=== PATIENT | male | born 1950 | race Caucasian/White ===

== ENCOUNTER 2016-05-18 08:26 | Inpatient (IN) | payer OTHER, BC ==
[2016-04-09 08:17] VITALS: BMI 33.0
--- NOTE | 2016-04-09 08:54 | PAT Medication Instructions ---
Service Date Apr 09, 2016. Current Home Medication List Acetaminophen (Tylenol Extra Strength), 1,000 MG PO QID Amlodipine (Norvasc), 10 MG PO QAM Aspirin (Aspirin), 81 MG PO QPM Atenolol (Tenormin), 100 MG PO QAM Atorvastatin (Atorvastatin Calcium), 10 MG PO QPM Famotidine (Pepcid), 20 MG PO DAILY PRN for STOMACH Gabapentin (Neurontin), 300 MG PO TID Ibuprofen (Advil), 200-600 MG PO Q4H PRN for Pain Metformin Hcl (Glucophage), 500 MG PO BID Valsartan (Diovan), 160 MG PO QAM Medication Instructions For Your Scheduled Surgery Ibuprofen (Advil), 200-600 MG PO Q4H PRN for Pain (patient will check with surgeon for instructions) - Hold the following medications 48 hours prior to surgery: Metformin Hcl (Glucophage), 500 MG PO BID - Hold the following medications the morning of surgery: Valsartan (Diovan), 160 MG PO QAM - Take the following medications the morning of surgery with a sip of water: Gabapentin (Neurontin), 300 MG PO TID (if needed) Famotidine (Pepcid), 20 MG PO DAILY PRN for STOMACH Atenolol (Tenormin), 100 MG PO QAM Amlodipine (Norvasc), 10 MG PO QAM Acetaminophen (Tylenol Extra Strength), 1,000 MG PO QID (if needed) - Take the following medications as scheduled the night before surgery: Gabapentin (Neurontin), 300 MG PO TID Atorvastatin (Atorvastatin Calcium), 10 MG PO QPM Aspirin (Aspirin), 81 MG PO QPM Acetaminophen (Tylenol Extra Strength), 1,000 MG PO QID If you have any questions please call us at [phone] or [phone] ( [place]) or [phone]
[2016-04-09 09:25] LABS: BASO % 0.5 %; BASO ABS # 0.04 K/uL (0-0.2); COMPLETE YES; EOS % 6.5 %; HEMATOCRIT 38.5 % (42-52); IG% 0.1 %; LYMPH % 30.7 %; LYMPH ABS # 2.51 K/uL (1.2-3.4); MEAN CELL VOLUME 87.3 fL (80-100); MEAN CORPUSCULAR HEMOGLOBIN 30.6 pg (25-34); MEAN CORPUSCULAR HGB CONC 35.1 g/dl (32-36); MEAN PLATELET VOLUME 10.3 fL (7.4-10.4); MONO % 5.3 %; NEUT % 56.9 %; PLATELET COUNT 229 K/uL (130-400); RED BLOOD COUNT 4.41 M/uL (4.7-6.1); WHITE BLOOD COUNT 8.18 K/uL (4.8-10.8)
[2016-04-09 09:33] LABS: URINE APPEARANCE CLEAR (CLEAR); URINE BILIRUBIN NEG (NEG); URINE COLOR YELLOW; URINE NITRITE NEG (NEG); URINE SPECIFIC GRAVITY 1.022 (1.000-1.030); UROBILINOGEN NEG (NEG)
[2016-04-09 09:39] LABS: MANUAL MICROSCOPIC REQUIRED? NO; REVIEW REQ? NO
--- NOTE | 2016-04-09 09:41 | DIAGNOSTIC IMAGING REPORT ---
CHEST PREADMISSION(PA/LAT) HISTORY: Preop. COMPARISON: Chest 09/28/2014. FINDINGS: The lungs are clear. Cardiac silhouette is normal in size. No pleural effusions. No pneumothorax. IMPRESSION: No acute process. Electronically signed by: Ant Ruiz M.D. 04/09/2016 9:39 AM Dictated Date/Time: 04/09/2016 9:37 AM
[2016-04-09 09:56] LABS: BUN/CREATININE RATIO 12.8 (10-20); CREATININE 1.2 mg/dl (0.60-1.40); POTASSIUM 4.4 mmol/L (3.5-5.1)
--- NOTE | 2016-05-14 07:58 | HISTORY & PHYSICAL EXAMINATION ---
DATE OF ADMISSION: 05/18/2016 HISTORY OF PRESENT ILLNESS: The patient presents to our office with complaint of left leg pain. He has had prior lumbar decompression and fusion L4-L5 and L5-S1 in September 2014. Had done well up until recently. He was placed on Neurontin due to his acute left leg pain. He is also noting dysfunction at the left leg. Denies paresthesias, numbness. Denies bowel or bladder changes. PAST MEDICAL HISTORY: Significant for BPH, diabetes, hypertension, high cholesterol. SURGICAL HISTORY: Significant for knee surgery in 2006 as well as prior back fusion 2014. MEDICATIONS: Currently include gabapentin 300 mg in the morning, atenolol 100 mg in the morning, amlodipine 10 mg in the morning, metformin 850 mg in the morning, Diovan HCT 160/12.5 in the morning, baby aspirin daily, metformin 850 mg daily, atorvastatin 10 mg daily. ALLERGIES: He has no known drug allergies. SOCIAL HISTORY: He is a manager body. He is . Denies alcohol. Denies tobacco. Denies drug use. FAMILY HISTORY: Significant for cancer, diabetes, hypertension and TIA. REVIEW OF SYSTEMS: Significant for difficulty walking. PHYSICAL EXAMINATION: VITAL SIGNS: 5 foot 6, 205 pounds. HEAD, EYES, EARS, NOSE, AND THROAT: Speech appropriate. CARDIOPULMONARY: No gross abnormalities. ABDOMEN: Soft, nondistended. GENITOURINARY: Deferred. NEUROLOGIC: Cranial nerves II through XII grossly intact. MUSCULOSKELETAL: He moves easily around the room, but he does favor the left side. Strength is intact bilateral lower extremities. No atrophy of bilateral lower extremities. ASSESSMENT: Herniated nucleus pulposus at L3-4 left radiculopathy. PLAN: At this point in time, we have reviewed surgical intervention which would require removal of instrumentation L4-5, L5-S1, lumbar decompression with instrumented fusion L3-L4, possible reinstrumentation L4-L5 and L5-S1. Risks, benefits, pros, cons, and alternatives were outlined in detail. The patient would like to proceed with the above-mentioned surgical planning.
[2016-05-18] VITALS (8 sets, daily range): BP systolic 114–163; BP diastolic 74–101; PULSE 64–88; TEMP 36.3–36.6; O2SAT 90–98; Ht 167.6 cm; Wt 92.9 kg
[~2016-05-18] VITALS: Ht 167.6 cm; Wt 92.9 kg
--- NOTE | 2016-05-18 07:29 | History & Physical Bridge Note ---
H&P Re-Evaluation Bridge Note: I have examined the patient, reviewed the History & Physical and in the interval since the performance of the History & Physical I have noted the following changes of clinical significance: No changes noted
[~2016-05-18 08:26] MED LIST: ACET-1257 PO; AMLO-114 PO; ASPI-461 PO; ATEN-175 PO; CEFAZOLIN 2000 MG/60 ML D5W IV SCH; DVN/160 PO; FAMO20TA11 PO; GABA-113 PO; GLC/500 PO; IBUP-1050 PO; LACTATED RINGER'S 1000ML 1,000 ML IV SCH; LPT10 PO
[2016-05-18] MEDS ORDERED: FENTANYL CITRATE INJ 50 MCG/1 ML 2 ML VIAL ONE ×3 (09:23→10:25)
[2016-05-18] MEDS ORDERED: MIDAZOLAM HCL 1 MG/ML 2ML VIAL ONE (09:23)
[2016-05-18] MEDS ORDERED: BACITRACIN 50000 UNIT VIAL ONE (09:44)
[2016-05-18] MEDS ORDERED: SODIUM CHLORIDE 0.9% PF 50 ML VIAL ONE (09:44)
[2016-05-18] MEDS ORDERED: BUPIVACAINE/EPINEPHRINE 0.5% MPF 1:200,000 30 ML VIAL ONE (09:44)
[2016-05-18] MEDS ORDERED: HYDROmorphone INJ 2 MG/ML SYR/VIAL ONE (10:22)
[2016-05-18] MEDS ORDERED: HYDROmorphone INJ 2 MG/ML SYR/VIAL IV PRN ×2 (11:15→11:30)
[2016-05-18] MEDS ORDERED: ONDANSETRON INJ 2 MG/ML 2 ML VIAL IV PRN ×3 (11:15→11:45)
[2016-05-18] MEDS ORDERED: KETOROLAC TROMETHAMINE 30 MG/ML VIAL IV. PRN (11:15)
[2016-05-18] MEDS ORDERED: PHENYLEPHRINE 100MCG/ML 5ML SYR IV PRN (11:15)
[2016-05-18] MEDS ORDERED: EpHEDrine SULFATE INJ 50 MG/ML AMP IV PRN (11:15)
[2016-05-18] MEDS ORDERED: ATROPINE SULFATE 0.1 MG/ML 5ML SYR IV PRN ×2 (11:15→11:30)
[2016-05-18] MEDS ORDERED: LABETALOL HCL IV 5 MG/ML 20ML IV PRN (11:30)
[2016-05-18] MEDS ORDERED: SODIUM CHLORIDE 0.9% 1000ML 1,000 ML IV SCH (11:41)
--- NOTE | 2016-05-18 11:41 | [facility] Post Operative Brief Note ---
Immediate Operative Summary Operative Date May 18, 2016. Pre-Operative Diagnosis Herniated nucleus pulposus at L3-4 left radiculopathy, Previous Fusion L4-S1 Post-Operative Diagnosis Herniated nucleus pulposus at L3-4 left radiculopathy, Previous Fusion L4-S1 Procedure(s) Performed L3-L4 Lumbar Laminectomy, Decompression, Pedicle Screw Fixation, Placement of Interbody Device, L3-S1 Posterolateral Fusion, Bone Morphogenetic Protein, Application of Vaishnavi Allograft, L4-S1 Hardware Removal Surgeon Dr. Souza Sticker On Surgeon(s) TABBY Garcia Estimated Blood Loss 150 Findings stenosis/hnp Specimens A. Removed Hardware L4-S1
[2016-05-18] MEDS ORDERED: FLOSEAL HEMOSTATIC MATRIX 10ML TOP ONE (11:43)
[2016-05-18] MEDS ORDERED: EpHEDrine SULFATE 50MG/5ML SYR ONE (11:44)
[2016-05-18] MEDS ORDERED: PROPOFOL IV EMULSION 10 MG/ML 20 ML VIAL IV ONE (11:44)
[2016-05-18] MEDS ORDERED: DEXAMETHASONE SOD INJ 4 MG/ML VIAL ONE (11:44)
[2016-05-18] MEDS ORDERED: ROCURONIUM BROMIDE 10 MG/ML 5 ML VIAL ONE (11:44)
[2016-05-18] MEDS ORDERED: NEOSTIGMINE METHYLSULFATE 1 MG/ML 10ML VIAL ONE (11:44)
[2016-05-18] MEDS ORDERED: LIDOCAINE HCL 2% 2 ML VIAL (20MG/ML) ONE (11:44)
[2016-05-18] MEDS ORDERED: ONDANSETRON INJ 2 MG/ML 2 ML VIAL ONE (11:44)
[2016-05-18] MEDS ORDERED: GLYCOPYRROLATE INJ 0.2 MG/ML VIAL ONE (11:44)
[2016-05-18] MEDS ORDERED: KETOROLAC TROMETHAMINE 30 MG/ML VIAL ONE (11:44)
[2016-05-18] MEDS ORDERED: BISACODYL 10 MG SUPP PR PRN (11:45)
[2016-05-18] MEDS ORDERED: FAMOTIDINE 20 MG TAB PO PRN ×2 (11:45)
[2016-05-18] MEDS ORDERED: hydrOXYzine HCL 25 MG TAB PO PRN (11:45)
[2016-05-18] MEDS ORDERED: NALOXONE HCL 0.4 MG/1 ML VIAL/CARP IV PRN ×2 (11:45)
[2016-05-18] MEDS ORDERED: METOCLOPRAMIDE HCL INJ 5 MG/ML 2 ML VIAL IV PRN (11:45)
[2016-05-18] MEDS ORDERED: LORAZEPAM 0.5 MG TAB PO PRN (11:45)
[2016-05-18] MEDS ORDERED: DO NOT ADMINISTER FLU VACCINE PRN ×3 (11:45)
[2016-05-18] MEDS ORDERED: DO NOT ADMINISTER PNEUMOCOCCAL VACCINE PRN ×2 (11:45)
[2016-05-18] MEDS ORDERED: LORAZEPAM INJ 0.5 MG in SYRINGE 0 ML IV PRN (11:45)
[2016-05-18] MEDS ORDERED: ALUMINUM/MAGNESIUM SUSP 30 ML UDC PO PRN (11:45)
[2016-05-18] MEDS ORDERED: MAGNESIUM HYDROXIDE SUSP 30 ML UDC PO PRN (11:45)
[2016-05-18] MEDS ORDERED: SOD PHOSPHATE/SOD BIPHOSPHATE ENEMA 132 ML BTL PR PRN (11:45)
[2016-05-18] MEDS ORDERED: ACETAMINOPHEN 500 MG TAB PO PRN (11:45)
[2016-05-18] MEDS ORDERED: ACETAMINOPHEN IV 100 ML IV PRN (11:45)
[2016-05-18] MEDS ORDERED: PROMETHAZINE HCL INJ 12.5 MG in SODIUM CHLORIDE 0.9% 50ML 50 ML IV PRN (11:45)
--- NOTE | 2016-05-18 11:56 | DIAGNOSTIC IMAGING REPORT ---
INTRAOPERATIVE LUMBAR SPINE 3 VIEWS CLINICAL HISTORY: L4-S1 HARDWARE REMOVAL/L3-S1 FUSION/DECOMPRESSION COMPARISON STUDY: No previous studies for comparison. FINDINGS: 7 seconds of fluoroscopic time was utilized. 3 intraoperative fluoroscopic spot images are provided for interpretation. There are postsurgical changes of discectomies and interbody fusions at the L2-3 and L5-S1 levels. There are history of pedicle screws the L5 L3 and L2 levels with adjoining spinal rods IMPRESSION: Postsurgical changes as described above. Electronically signed by: Ian Blackwood M.D. 05/18/2016 11:54 AM Dictated Date/Time: 05/18/2016 11:50 AM
[2016-05-18] MEDS ORDERED: HYDROmorphone HCL 0.5MG/ML 50 ML CASSETTE ONE (12:05)
[2016-05-18] MEDS ORDERED: PHARMACY GLYCEMIC MGMT CONSULT PRN (12:11)
--- NOTE | 2016-05-18 12:22 | OPERATIVE REPORT ---
DATE OF OPERATION: 05/18/2016 PREOPERATIVE DIAGNOSIS: Spinal stenosis, herniated nucleus pulposus, L3-L4. POSTOPERATIVE DIAGNOSIS: Same. PROCEDURE PERFORMED: 1. Removal of posterior segmental instrumentation L4-L5 and L5-S1. 2. Exploration of fusion L4-L5 and L5-S1. 3. Decompression medial facetectomies, foraminotomies L2-L3, L3-L4. 4. Posterior spinal fusion L3-L4. 5. Placement of posterior segmental instrumentation using Orthros rods and screws L3-S1. 6. Interbody fusion L3-L4. 7. Placement of PEEK cage 12 x 26 mm at L3-L4. 8. Placement of locally harvested morcellized autograft in posterior gutters. 9. Placement of Infuse collagen sponge combined with Mastergraft in posterior gutters and Vaishnavi bone graft in the interbody space. SURGEON: Dr. Maxwell Souaz. SERVICE CENTER TECHNICIAN: TABBY Garcia. ANESTHESIA: General. DISPOSITION: The patient awakened and taken to PACU in stable condition. HISTORY OF PATIENT'S PROBLEMS: This is a 65-year-old male well known to me that presents with above-mentioned diagnosis. After failing an extensive course of nonoperative care, elected to undergo the above-mentioned procedure. Risks, benefits, pros, cons, and alternatives were outlined in detail preoperatively. PROCEDURE: The patient was met with preoperatively, case discussed and all questions were addressed. At that point the patient was taken back to operative suite and after undergoing successful general endotracheal intubation by department of anesthesia, was placed in prone position on Mikey table atop Sanchez frame. All bony prominences were well padded and the eyes were inspected to ensure there was no external pressure placed upon them. At this point, the lumbar spine was prepped and draped in a normal sterile fashion. Sharp dissection with the assistance of Bovie cautery was performed down to and exposing the lamina and transverse processes of 3 and instrumentation at the 4, 5 and S1 levels bilaterally. I then proceed to remove the hardware at 4-5 and S1 levels bilaterally exploring the fusion mass. It did appear to be intact. From a caudal to cephalad fashion, a complete laminectomy of L3, partial laminectomy of L2 was performed addressing severe lateral recess stenosis, as well as evidence of several fragments of discal material within the foramina of 3-4 on the left. After complete decompression, pedicle screws were then placed in L3, 4, and S1 levels bilaterally with assistance of fluoroscopy and appropriate size pato provisionally placed. Through a transforaminal approach on the left, a complete discectomy of L3-4 was performed, endplates curetted to subcortical bleeding bone and a 12 x 26 mm PEEK cage filled with Vaishnavi bone grafting tapped into position. The rods were then compressed, locked into final position bilaterally and transverse processes of 3, 4, and 5 burred to subcortical bleeding bone. Infuse collagen sponge combined with Mastergraft and locally harvested morselized autograft was placed in the posterior gutters. A 7 flat JUAN ANTONIO drain was inserted. Incision was closed with 1-0 Vicryl in the fascia, 2-0 Vicryl subcutaneously, 4-0 Monocryl for final skin closure. Steri-Strips and sterile dressing placed. The patient was awakened and taken to PACU in stable condition. Due to the complex nature of the procedure, the entire surgery was performed with the operational assistance of TABBY Garcia. The fws faculty assistant, under direct supervision, was involved in the actual performance of all aspects of the surgical procedure including hemostasis, tissue retraction and incision, instrument management, patient positioning, and wound closure. I attest to the content of the Intraoperative Record and any orders documented therein. Any exceptio ns are noted below.
--- NOTE | 2016-05-18 12:53 | Pharmacy Progress Note ---
Glycemic Control Intl Consult Date of Service May 18, 2016. Scope Glycemic Pharmacist consulted by Dr Souza on 05/18/16 for glycemic control and to write orders per [facility] inpatient glycemic control protocol Objective Weight (Kilograms): 92.90 Accuchecks BSG (last 24hrs): Test 05/18/16 08:51 05/18/16 12:15 Bedside Glucose 164 mg/dl (70-99) 214 mg/dl (70-99) Recent Pertinent Medications Outpatient Anti-diabetic Regimen: * Metformin 500mg PO BID The patient is currently receiving: * Basal insulin: none * Correctional Insulin: none * Prandial insulin: none * Oral Agents: none Risk Factors for Insulin Resistance: * Steroids: Dexamethasone 12mg IV x1 dose in OR, then 6mg IV every 8 hours x 3 doses * Infection: cefazolin perioperatively * IVF: LR * Recent Surgery: POD #0 * Diet: Regular Assessment & Plan ASSESSMENT: * ADA & AACE recommend a goal blood sugar range 140-180 mg/dl for the majority of critically ill & non-critically ill patients. However, more stringent targets may be selected in individual cases. 05/18/16 * 65 y/o type 2 diabetes with unknown outpatietn control as A1c is not up to date * Postoperative from lumbar spinal stenosis procedure and now with ATC steroids x24 hours * likely will see steroid induced hyperglycemia * Home regimen is metformin monotherapy * hold postoperatively until PO intake established * change to weight based basal/bolus regimen * A1c outdated - ordered with AM labs * Regular diet ordered --> T2DM diet PLAN FOR INPATIENT GLYCEMIC CONTROL: * Lantus 10 units SQ x1 dose this afternoon upon admission to floor * Lantus SQ BID starting tonight * 0 units if BSG is below 120mg/dL * 10 units if BSG is 120-160mg/dL * 15 units if BSG is above 160mg/dL * NovoLog AC/HS/ * Correction factor 25mg/dL/unit * Carb ratio: 1 unit per 7g of CHO consumed * Goal range: 100-140mg/dL - slightly more aggressive to reduce risk of postop infection * A1c - ordered * Diet changed to T2DM * Please note that the plan above was derived based on current level of insulin resistance and hospital stress. These recommendations are appropriate for inpatient admission only. Plan of care upon discharge will need to be reassessed to avoid potential outpatient hypo/hyperglycemia. Thank you.
--- NOTE | 2016-05-18 13:37 | Anesthesiology Progress Note ---
Anesthesia Post Op Note Date & Time May 18, 2016 at 13:36 Vital Signs Pain Intensity: 0 Vital Signs Past 12 Hours Date Time Temp Pulse Resp B/P Pulse Ox O2 Delivery O2 Flow Rate FiO2 05/18/16 12:44 127/79 05/18/16 12:43 66 14 95 05/18/16 12:43 66 14 05/18/16 12:39 36.4 65 16 127/79 95 Nasal Cannula 4 05/18/16 12:39 127/81 05/18/16 12:38 65 10 94 05/18/16 12:38 65 10 05/18/16 12:34 121/78 05/18/16 12:33 66 12 97 05/18/16 12:33 67 12 05/18/16 12:29 135/83 05/18/16 12:28 65 13 05/18/16 12:28 65 13 95 05/18/16 12:24 134/82 05/18/16 12:23 65 13 05/18/16 12:23 65 13 100 05/18/16 12:22 63 14 99 05/18/16 12:22 64 14 05/18/16 12:19 143/87 05/18/16 12:17 77 11 05/18/16 12:17 76 11 99 05/18/16 12:14 143/85 05/18/16 12:12 75 13 05/18/16 12:12 75 13 99 05/18/16 12:09 142/88 05/18/16 12:07 76 14 100 05/18/16 12:07 76 14 05/18/16 12:04 146/93 05/18/16 12:02 36.2 83 14 155/94 99 Mask 10 05/18/16 12:02 83 16 155/94 99 05/18/16 12:02 82 16 05/18/16 08:53 36.6 66 20 163/101 96 Room Air Notes Mental Status: alert / awake / arousable, participated in evaluation Pt Amnestic to Procedure: Yes Nausea / Vomiting: adequately controlled Pain: adequately controlled Airway Patency, RR, SpO2: stable & adequate BP & HR: stable & adequate Hydration State: stable & adequate Anesthetic Complications: no major complications apparent
[2016-05-18] MEDS ORDERED: INSULIN GLARGINE SOLOSTAR 100 UNITS/ML 3 ML PEN SC SCH (13:45)
[2016-05-18] MEDS: GABAPENTIN 300 MG CAP PO SCH ×2 (14:16→20:32)
[2016-05-18] MEDS: INSULIN ASPART 100 UNITS/ML 3 ML PEN SC SCH ×3 (14:17→20:39)
[2016-05-18] MEDS: LACTATED RINGER'S 1000ML 1,000 ML IV SCH ×2 (14:18→18:00)
[2016-05-18] MEDS ORDERED: RXC5 PO (14:26)
--- NOTE | 2016-05-18 14:26 | Discharge Instructions ---
Discharge Instructions Admission Reason for Admission: Lumbar Spinal Stenosis Discharge Discharge Diagnosis / Problem: stenosis Discharge Goals Goal(s): Improve function Activity Recommendations Activity Limitations: per Instructions/Follow-up section . Instructions / Follow-Up Instructions / Follow-Up ACTIVITY RECOMMENDATIONS: SELF CARE INSTRUCTIONS AFTER CERVICAL FUSIONS 1. No smoking. Smoking drastically decreases the chance of a solid fusion. 2. No bending, lifting more than 5 pounds, or twisting (roll like a log when turning in bed). 3. You may shower 3 days after surgery. Thoroughly dry wound. Do not soak in the tub. 4. Cervical collar: Must be worn at all times including sleeping. You may remove the brace only to bath, eat and if you are sitting in a recliner. 5. Please walk as much as you can for exercise. Gradually increase the distance that you walk as your endurance increases. SPECIAL CARE INSTRUCTIONS: VERY IMPORTANT TO READ AND REVIEW A. Do not take any anti-inflammatory medications (i.e. Indocin, Advil, Aspirin, Naprosyn, Aleve, Motrin, etc.) as these may inhibit the chance of a solid fusion. Tylenol is okay to take. B. Your surgical incision has been closed with a cosmetic suture under the skin that will dissolve in about 6 weeks. In 14 days, you can use a pair of clean scissors and cut the suture that is left outside of the skin at the ends of your incision. C. Complications are uncommon, but please contact us if you have any signs or symptoms of: 1. wound infection (fever higher than 102.5 degrees F, redness, separation of wound, drainage, or increasing pain from the incision) 2. blood clots in legs (pain, swelling, redness and warmth in legs) 3. urinary tract infection (fever higher than 102.5 degrees, burning upon urination or increased frequency of urination) 4. nerve problems (inability to walk on your toes or heels, numbness, loss of bowel or bladder control) 5. any other symptoms that concern you. D. Please call the office at if you have any concerns or questions about your operation or recovery. MANAGING PAIN AFTER SPINAL SURGERY 1. Narcotic medication is intended for short-term use and will be provided for surgical pain. Surgical pain usually lasts for a period of 4-6 weeks. Narcotic medication includes Percocet, Vicodin, Darvocet, Tylenol #3 or Lortab. 2. Longer-term pain is more appropriately treated with non-narcotic medication such as Tylenol ES. 3. Muscle spasm is not appropriately treated with narcotics. Muscle relaxers such as Soma, Flexeril or Skelaxin can be used along with Tylenol ES. 4. Remember that we all live with some "aches and pains". This is not unusual or uncommon after an injury or as we get older. 5. We will provide appropriate medication within the normal guidelines of their prescribed use. We will also be very cautious and aware of potential abuse and extended duration of patients' medication needs. 6. Please allow 2-3 days to process refills. Prescriptions will not be mailed but must be picked up at the office. FOLLOW UP VISIT: Keep your scheduled follow-up appointment. Any questions, please call the office at . Current Hospital Diet Patient's current hospital diet: Diabetes Type 2 Diet Discharge Diet Recommended Diet: Regular Diet Procedures Procedures Performed: L3-L4 Lumbar Laminectomy, Decompression, Pedicle Screw Fixation, Placement of Interbody Device L3-L4, L3-S1 Posterolateral Fusion, Bone Morphogenetic Protein , Application of Vaishnavi Allograft, L4-S1 Hardware Removal Pending Studies Studies pending at discharge: no Medical Emergencies . Who to Call and When: Medical Emergencies: If at any time you feel your situation is an emergency, please call 911 immediately. . Non-Emergent Contact Non-Emergency issues call your: Primary Care Provider . "Provider Documentation" section prepared by Maxwell Souza. VTE Core Measure Inpt VTE Proph given/why not?: Ilya Nava, SCD's
[2016-05-18] MEDS: HYDROmorphone HCL 0.5MG/ML 50 ML CASSETTE IV PRN ×2 (15:12→23:04)
[2016-05-18] MEDS: CEFAZOLIN IV 2,000 MG in DEXTROSE 5% 50ML 50 ML IV SCH (18:00)
[2016-05-18] MEDS: DEXAMETHASONE INJ 6 MG in SYRINGE 0 ML IV SCH (20:31)
[2016-05-18] MEDS: ASPIRIN 81 MG ECTAB PO SCH (20:32)
[2016-05-18] MEDS: ATORVASTATIN 10 MG TAB PO SCH (20:32)
[2016-05-18] MEDS: DOCUSATE SODIUM/SENNA 50/8.6MG TAB PO SCH (20:33)
[2016-05-18] MEDS: INSULIN GLARGINE SOLOSTAR 100 UNITS/ML 3 ML PEN SC SCH (20:36)
[2016-05-19] MEDS: LACTATED RINGER'S 1000ML 1,000 ML IV SCH (00:19)
[2016-05-19] MEDS: INSULIN ASPART 100 UNITS/ML 3 ML PEN SC SCH ×6 (00:21→20:56)
[2016-05-19] MEDS: CEFAZOLIN IV 2,000 MG in DEXTROSE 5% 50ML 50 ML IV SCH (01:33)
[2016-05-19 03:20] VITALS: BP 110/76; PULSE 95; TEMP 36.4; O2SAT 91
[2016-05-19] MEDS: DEXAMETHASONE INJ 6 MG in SYRINGE 0 ML IV SCH ×2 (04:03→12:01)
[2016-05-19] MEDS ORDERED: COUGH DROP (SUGAR FREE) LOZ 24 LOZ/1 BOX ONE (04:12)
[2016-05-19] MEDS ORDERED: HYDROmorphone INJ 1 MG/ML SYR IV PRN (06:00)
[2016-05-19] MEDS ORDERED: DC PCA ONE (06:00)
[2016-05-19] MEDS ORDERED: HYDROmorphone INJ 0.5 MG/0.5 ML SYR IV PRN (06:00)
[2016-05-19] MEDS ORDERED: NURSING DECISION MEDICATION ORDER SCH (07:15)
[2016-05-19] MEDS: OXYCODONE HCL IR 5 MG TAB (IMMEDIATE RELEASE) PO PRN ×2 (07:19→12:03)
[2016-05-19 07:47] VITALS: BP 137/82; PULSE 84; TEMP 36.5; O2SAT 90
--- NOTE | 2016-05-19 08:09 | Anesthesiology Progress Note ---
Anesthesia Post Op Note Date & Time May 19, 2016 at 08:09 Vital Signs Vital Signs Past 12 Hours Date Time Temp Pulse Resp B/P Pulse Ox O2 Delivery O2 Flow Rate FiO2 05/19/16 07:47 36.5 84 16 137/82 90 Room Air 05/19/16 07:15 Room Air 05/19/16 03:20 36.4 95 16 110/76 91 Room Air 05/19/16 00:15 Room Air 05/18/16 23:00 36.4 73 16 125/77 93 Room Air Notes Mental Status: alert / awake / arousable, participated in evaluation Pt Amnestic to Procedure: Yes Nausea / Vomiting: adequately controlled Pain: adequately controlled Airway Patency, RR, SpO2: stable & adequate BP & HR: stable & adequate Hydration State: stable & adequate Anesthetic Complications: no major complications apparent
--- NOTE | 2016-05-19 08:27 | PROGRESS NOTE ---
DATE: 05/19/2016 SUBJECTIVE: Postop day #1. Back pain controlled. Leg pain improved. Vital signs stable. T-max 36.5. JUAN ANTONIO drained 80 mL. Hematocrit this a.m. is pending. OBJECTIVE: On exam, patient has good strength to testing and is comfortable. ASSESSMENT: Status post lumbar decompression ____ and fusion. PLAN: At this time, we will initiate physical therapy, advance his bowel regimen and anticipate home in the next day or so.
[2016-05-19 09:13] VITALS: BP 151/81; PULSE 97
[2016-05-19] MEDS: AMLODIPINE BESYLATE 5 MG TAB PO SCH (09:15)
[2016-05-19] MEDS: GABAPENTIN 300 MG CAP PO SCH ×3 (09:15→20:53)
[2016-05-19] MEDS: VALSARTAN 80 MG TAB PO SCH (09:16)
[2016-05-19] MEDS: INSULIN GLARGINE SOLOSTAR 100 UNITS/ML 3 ML PEN SC SCH ×2 (09:18→20:57)
--- NOTE | 2016-05-19 10:26 | Pharmacy Progress Note ---
Glycemic Control: Progress Nt Date of Service May 19, 2016. Scope Glycemic Pharmacist consulted by Dr Souza on 05/18/16 for glycemic control and to write orders per [facility] inpatient glycemic control protocol. Objective Accuchecks BSG (last 24hrs): Test 05/18/16 12:15 05/18/16 13:34 05/18/16 16:42 05/18/16 20:34 Bedside Glucose 214 mg/dl (70-99) 206 mg/dl (70-99) 202 mg/dl (70-99) 225 mg/dl (70-99) Test 05/19/16 00:13 05/19/16 03:57 05/19/16 04:44 05/19/16 08:16 Bedside Glucose 199 mg/dl (70-99) 199 mg/dl (70-99) 211 mg/dl (70-99) Laboratory Data (last 24hrs) Test 05/19/16 04:44 HbA1c: Test 05/19/16 04:44 Recent Pertinent Medications Outpatient Anti-diabetic Regimen: * Metformin 500mg PO BID The patient is currently receiving: * Basal insulin: Lantus 15 units SQ BID * Correctional Insulin: NovoLog SQ AC and HS * Correction factor: 25mg/dL/unit * Prandial insulin: 1 unit per 7 g of CHO consumed * Oral Agents: holding at this time Risk Factors for Insulin Resistance: * Steroids: Dexamethasone 12mg IV x1 dose in OR, then 6mg IV every 8 hours x 3 doses * Infection: cefazolin perioperatively * Recent Surgery: POD #1 * Diet: T2DM Assessment & Plan ASSESSMENT: * ADA & AACE recommend a goal blood sugar range 140-180 mg/dl for the majority of critically ill & non-critically ill patients. However, more stringent targets may be selected in individual cases. 05/18/16 * 65 y/o type 2 diabetes with unknown outpatient control as A1c is not up to date * Postoperative from lumbar spinal stenosis procedure and now with ATC steroids x24 hours * likely will see steroid induced hyperglycemia * Home regimen is metformin monotherapy * hold postoperatively until PO intake established * change to weight based basal/bolus regimen * A1c outdated - ordered with AM labs * Regular diet ordered --> T2DM diet 05/19/16 * despite aggressive insulin regimen, BSGs remain elevated in the 200's * further tighten NovoLog parameters * Begin metformin tomorrow * Last dose of dexamethasone is today around noontime * may need to titrate insulin regimen as steroids effect wears off * hesitate to further increase basal insulin since nearing end of steroid doses PLAN FOR INPATIENT GLYCEMIC CONTROL: * Lantus SQ BID starting tonight * 0 units if BSG is below 120mg/dL * 10 units if BSG is 120-140mg/dL * 15 units if BSG is above 140mg/dL * NovoLog AC/HS/ * Correction factor 20mg/dL/unit * Carb ratio: 1 unit per 6g of CHO consumed * Goal range: 100-140mg/dL - slightly more aggressive to reduce risk of postop infection * metformin 500mg PO BID starting on 05/20/16 * A1c - 7.2% * added to discharge instructions * Please note that the plan above was derived based on current level of insulin resistance and hospital stress. These recommendations are appropriate for inpatient admission only. Plan of care upon discharge will need to be reassessed to avoid potential outpatient hypo/hyperglycemia. Thank you.
[2016-05-19 10:34] LABS: BASO % 0.1 %; BASO ABS # 0.01 K/uL (0-0.2); COMPLETE YES; HEMATOCRIT 34.6 % (42-52); IG% 0.4 %; LYMPH % 6.2 %; LYMPH ABS # 1.13 K/uL (1.2-3.4); MEAN CELL VOLUME 85.4 fL (80-100); MEAN CORPUSCULAR HEMOGLOBIN 30.1 pg (25-34); MEAN CORPUSCULAR HGB CONC 35.3 g/dl (32-36); MEAN PLATELET VOLUME 10.5 fL (7.4-10.4); MONO % 2.1 %; NEUT % 91.2 %; PLATELET COUNT 258 K/uL (130-400); RED BLOOD COUNT 4.05 M/uL (4.7-6.1); WHITE BLOOD COUNT 18.16 K/uL (4.8-10.8)
[2016-05-19 10:59] LABS: BUN/CREATININE RATIO 10.6 (10-20); CALCIUM 8.7 mg/dl (8.5-10.1); CREATININE 1.2 mg/dl (0.60-1.40); POTASSIUM 3.4 mmol/L (3.5-5.1)
[2016-05-19 11:14] LABS: ESTIMATED AVERAGE GLUCOSE 160 mg/dl; HA1C FLAG Normal (Normal)
[2016-05-19 11:47] VITALS: BP 139/89; PULSE 85; TEMP 36.5; O2SAT 89
[2016-05-19 15:08] VITALS: BP 126/84; PULSE 89; TEMP 36.9; O2SAT 91
[2016-05-19] MEDS: ASPIRIN 81 MG ECTAB PO SCH (20:53)
[2016-05-19] MEDS: DOCUSATE SODIUM/SENNA 50/8.6MG TAB PO SCH (20:53)
[2016-05-19] MEDS: ATORVASTATIN 10 MG TAB PO SCH (20:53)
[2016-05-19 23:50] VITALS: BP 130/82; PULSE 95; TEMP 36.6; O2SAT 93
[2016-05-20] VITALS (7 sets, daily range): BP systolic 138–184; BP diastolic 87–110; PULSE 80–83; TEMP 36.4–36.5; O2SAT 93–95
[2016-05-20] MEDS: POLYETHYLENE (MIRALAX) 17 GM PACK PO SCH ×2 (06:00→12:37)
[2016-05-20] MEDS: OXYCODONE HCL IR 5 MG TAB (IMMEDIATE RELEASE) PO PRN ×2 (06:09→11:34)
[2016-05-20] MEDS ORDERED: METFORMIN HCL 500 MG TAB PO SCH (08:30)
[2016-05-20] MEDS: GABAPENTIN 300 MG CAP PO SCH ×2 (09:01→13:51)
[2016-05-20] MEDS: AMLODIPINE BESYLATE 5 MG TAB PO SCH (09:02)
[2016-05-20] MEDS: VALSARTAN 80 MG TAB PO SCH (09:03)
[2016-05-20] MEDS: INSULIN ASPART 100 UNITS/ML 3 ML PEN SC SCH ×2 (09:06→13:14)
[2016-05-20] MEDS: INSULIN GLARGINE SOLOSTAR 100 UNITS/ML 3 ML PEN SC SCH (09:07)
--- NOTE | 2016-05-20 14:03 | Pharmacy Progress Note ---
Glycemic Control: Progress Nt Date of Service May 20, 2016. Scope Glycemic Pharmacist consulted by Dr Souza on 05/18/16 for glycemic control and to write orders per [facility] inpatient glycemic control protocol. Objective Accuchecks BSG (last 24hrs): Test 05/19/16 16:44 05/19/16 20:52 05/20/16 06:39 05/20/16 12:14 Bedside Glucose 157 mg/dl (70-99) 202 mg/dl (70-99) 155 mg/dl (70-99) 122 mg/dl (70-99) HbA1c: Test 05/19/16 10:00 Hemoglobin A1c 7.2 % (4.5-5.6) H Recent Pertinent Medications Outpatient Anti-diabetic Regimen: * Metformin 500mg PO BID * A1c = 7.2 % 05/19/16 The patient is currently receiving: * Basal insulin: Lantus 5-15 units every 12 hours (5 units for BSG less than 120; 10 units for BSG 120-140; 15 units for BSG above 140) * Correctional Insulin: Novolog Correction per scale ACHS Goal Range: Low 100 mg/dL - High 140 mg/dL Correction Factor: 20 mg/dL/unit * Prandial insulin: Per carb ratio of 1 unit per 6 grams CHO consumed * Oral Agents: Metformin 500mg PO BID restarted this AM Risk Factors for Insulin Resistance: * Steroids: was given 3 doses of Dexamethasone 6mg IV post-op; last dose given ~1200 yesterday * Recent Surgery POD # 2 * Diet: ordered T2DM diet and tolerating well Assessment & Plan ASSESSMENT: 05/19/16 * despite aggressive insulin regimen, BSGs remain elevated in the 200's * further tighten NovoLog parameters * Begin metformin tomorrow * Last dose of dexamethasone is today around noontime * may need to titrate insulin regimen as steroids effect wears off * hesitate to further increase basal insulin since nearing end of steroid doses 05/20/16 * Glycemic control is improving * Effects of steroids are wearing off; insulin sensitivity is improving * Will reduce the basal, correctional and prandial insulin doses now that metformin restarted and steroid induced insulin resistance waning; metformin monotherapy was producing decent control prior to admission PLAN FOR INPATIENT GLYCEMIC CONTROL: * Decreasing Lantus to 10 units SQ Q AM - hold if BSG less than 110 * Changing correction factor to 25 mg/dl/unit * Changing carb ratio to 1 unit per 9 grams CHO consumed * Continuing goal range of Low 100 mg/dL - High 140 mg/dL RECOMMENDATIONS FOR DISCHARGE: * Resume home regimen of metformin 500mg PO BID * Please note that the plan above was derived based on current level of insulin resistance and hospital stress. These recommendations are appropriate for inpatient admission only. Plan of care upon discharge will need to be reassessed to avoid potential outpatient hypo/hyperglycemia. Thank you.
--- NOTE | 2016-05-20 17:21 | DISCHARGE SUMMARY ---
PRINCIPAL DIAGNOSIS: Spinal stenosis. HOSPITAL COURSE FOLLOWS: On May 18, patient underwent lumbar decompression and fusion, tolerated this well and taken to the orthopedic floor postoperatively. Postop day #1, he was up and ambulatory, progressed nicely. Postop day #2, pain well controlled. JUAN ANTONIO drain decreased appropriately. Subsequently discharged home. Discharge orders and instructions found on the chart for further review.
[2016-05-21] MEDS ORDERED: INSULIN GLARGINE SOLOSTAR 100 UNITS/ML 3 ML PEN SC SCH (09:00)
== END 2016-05-20 14:42 | disposition home or self-care (01) | DRG 460 ==
LOC: ENRESERVDT → ENRESERVTM → C.ACU 08:26 → C.3E 09:30
PROVIDERS: ADMIT Orthopaedic Surgery Orthopaedic Surgery of the Spine; ATTEND Orthopaedic Surgery Orthopaedic Surgery of the Spine
PROC: 0SG0071 Fusion of Lumbar Vertebral Joint with Autologous Tissue Substitute, Posterior Approach, Posterior Column, Open Approach (ICD-10-PCS; principal; 2016-05-18 10:15)
PROC: 01NB0ZZ Release Lumbar Nerve, Open Approach (ICD-10-PCS; principal; 2016-05-18 10:15)
PROC: 0ST20ZZ Resection of Lumbar Vertebral Disc, Open Approach (ICD-10-PCS; principal; 2016-05-18 10:15)
PROC: 0SG00AJ Fusion of Lumbar Vertebral Joint with Interbody Fusion Device, Posterior Approach, Anterior Column, Open Approach (ICD-10-PCS; principal; 2016-05-18 10:15)
PROC: 0SP004Z Removal of Internal Fixation Device from Lumbar Vertebral Joint, Open Approach (ICD-10-PCS; principal; 2016-05-18 10:15)
PROC: 3E0U0GB Introduction of Recombinant Bone Morphogenetic Protein into Joints, Open Approach (ICD-10-PCS; principal; 2016-05-18 10:15)
DX: M51.16 Intervertebral disc disorders with radiculopathy, lumbar region (principal); M48.06 Spinal stenosis, lumbar region; E11.9 Type 2 diabetes mellitus without complications; I10 Essential (primary) hypertension; E78.00 Pure hypercholesterolemia, unspecified; N40.0 Benign prostatic hyperplasia without lower urinary tract symptoms; K21.9 Gastro-esophageal reflux disease without esophagitis; M19.90 Unspecified osteoarthritis, unspecified site; E66.9 Obesity, unspecified; Z68.33 Body mass index [BMI] 33.0-33.9, adult; Z87.891 Personal history of nicotine dependence; Z98.1 Arthrodesis status; Z79.82 Long term (current) use of aspirin; Z79.84 Long term (current) use of oral hypoglycemic drugs; Z79.899 Other long term (current) drug therapy

== ENCOUNTER 2022-04-03 07:39 | Inpatient (IN) ==
--- NOTE | 2022-03-06 11:03 | PAT Medication Instructions ---
Medication Instructions Date of Service March 06, 2022 Home Medications amlodipine 10 mg tablet 10 mg PO QAM aspirin 81 mg tablet,delayed release 81 mg PO QPM atenolol 100 mg tablet 100 mg PO QAM atorvastatin 10 mg tablet 10 mg PO PM metformin 500 mg tablet 1,000 mg PO PM losartan 100 mg tablet 100 mg PO QAM tamsulosin 0.4 mg capsule (Flomax) 0.4 mg PO BID acetaminophen 500 mg tablet 500 mg PO Q6H PRN famotidine 20 mg tablet 20 mg PO QAM finasteride 5 mg tablet 5 mg PO QAM omeprazole 20 mg capsule,delayed release 20 mg PO QAM tadalafil 5 mg tablet 5 mg PO QPM ASK your prescriber and surgeon aspirin 81 mg tablet,delayed release 81 mg PO QPM DO NOT take the morning of surgery losartan 100 mg tablet 100 mg PO QAM Take morning of surgery With a small sip of water, OTHERWISE NOTHING TO EAT OR DRINK AFTER MIDNIGHT: amlodipine 10 mg tablet 10 mg PO QAM atenolol 100 mg tablet 100 mg PO QAM tamsulosin 0.4 mg capsule (Flomax) 0.4 mg PO BID acetaminophen 500 mg tablet 500 mg PO Q6H PRN(if needed) famotidine 20 mg tablet 20 mg PO QAM finasteride 5 mg tablet 5 mg PO QAM omeprazole 20 mg capsule,delayed release 20 mg PO QAM Take evening before surgery atorvastatin 10 mg tablet 10 mg PO PM metformin 500 mg tablet 1,000 mg PO PM tamsulosin 0.4 mg capsule (Flomax) 0.4 mg PO BID acetaminophen 500 mg tablet 500 mg PO Q6H PRN(if needed) tadalafil 5 mg tablet 5 mg PO QPM Other Notes If you have any questions please call us at [phone] or [phone] or [phone] or [phone]
--- NOTE | 2022-03-16 11:01 | Anesthesiology Consultation ---
Date of Service March 16, 2022 Assessment & Plan (1) Encounter for pre-operative examination: - COVID screening: Per assessment on 03/16: No known COVID-19 positive contacts or current COVID-19 related symptoms. Travel screen negative. Patient vaccinated. At surgeon discretion if preop Covid testing being done. - Check BSG AM DOS Chart Review Chart Review: Acceptable Risk for Surgery and Patient seen in Pre Admission Testing Teaching & Discussion Pre-Anesthesia Teaching/Discussion Notes: Instructed NPO after midnight before surgery,except medications with 15 cc of water. Medication instructions provided according to the PAT guidelines. History Surgery Operation Date: 03/27/22 10:05 Proposed Procedures p L2-L3 Decompression and Fusion, Possible Hardware Removal at L3-L5 - Maxwell Souza DO Height/Weight Height: 5 ft 7 in Weight: 82 kg Allergies Allergy/AdvReac Type Severity Reaction Status Date / Time No Known Allergies Allergy Verified 03/06/22 08:16 Medications Home Medications Medication Instructions Recorded Confirmed Last Taken amlodipine 10 mg tablet 10 mg PO QAM 04/11/18 03/06/22 01/30/19 07:30 aspirin 81 mg tablet,delayed 81 mg PO QPM 04/11/18 03/06/22 01/26/19 release atenolol 100 mg tablet 100 mg PO QAM 04/11/18 03/06/22 01/30/19 07:30 atorvastatin 10 mg tablet 10 mg PO PM 04/11/18 03/06/22 01/29/19 20:30 metformin 500 mg tablet 1,000 mg PO PM 04/11/18 03/06/22 01/29/19 21:00 losartan 100 mg tablet 100 mg PO QAM 04/21/18 03/06/22 01/29/19 10:00 tamsulosin 0.4 mg capsule (Flomax) 0.4 mg PO BID 04/21/18 03/06/22 01/29/19 18:30 acetaminophen 500 mg tablet 500 mg PO Q6H PRN Pain 01/18/19 03/06/22 Unknown famotidine 20 mg tablet 20 mg PO QAM 03/06/22 03/06/22 Unknown finasteride 5 mg tablet 5 mg PO QAM 03/06/22 03/06/22 Unknown omeprazole 20 mg capsule,delayed 20 mg PO QAM 03/06/22 03/06/22 Unknown release tadalafil 5 mg tablet 5 mg PO QPM 03/06/22 03/06/22 Unknown Past Medical History Medical History (Updated 03/16/22 @ 16:51 by Radha Stanley) BPH (benign prostatic hyperplasia) Chronic anemia Chronic back pain + R>LLE "burning" s/p SI joint fusion 04/2018 Diabetes mellitus, type 2 NIDDM GERD (gastroesophageal reflux disease) controlled Hyperlipidemia Hypertension Kidney stones no surgery Exercise / Class Metabolic Activity II 4-5 Yardwork/Stairs/Walk up hill (one FS (no CP, no SOB)) Past Family History Family History Other No family history of adverse response to anesthesia Past Surgical History Surgical History Fusion of spine multiple (lumbar) H/O arthroscopy of left knee History of back surgery Bilateral SI joint fusions (Dr Souza @ [facility]) S/P Left SI joint fusion 04/23 10/07: Grade 1 view, MAC#3, ETT 8.0 at [facility]. R 01/30/19: Grade 1 view, MAC 3, ETT 8. Hx of colonoscopy Past Anesthesia History No Hx of Anesthesia Complications and No Family Hx of Anesthesia Complications History of PONV No Hx of PONV and No Hx of Motion Sickness Social History Smoking Status: Never smoker Do You Dip or Chew Tobacco: No Hx Alcohol Use: No Hx Substance Use: No substance use type: does not use Review of Systems Patient denies chest pain, shortness of breath, dyspnea on exertion, fever, chills, cough, wheezing, palpitations. Physical Exam Vital Signs VITALS BP 160/86 P 69 TEMP 98.1 SP02 97%RA RESP 18 PHYSICAL Full cervical extension range of motion. Full TMJ range of motion. TMD 3 finger breaths Mallampati Score 2 Dentition: missing side, + crown Lungs: clear throughout to auscultation Cardiac: regular rate and rhythm, no murmurs noted Spine: normal Carotid arteries: negative bruit Extremities: no edema Lab Results Anesthesia Preop Results Results Anesthesia Widget: WBC 6.43 K/ul (4.8-10.8) 03/16/22 Hgb 11.1 g/dl (14.0-18.0) L 03/16/22 Hct 32.2 % (40.1-51.0) L 03/16/22 Plt 215 K/uL (130-400) 03/16/22 Na 141 mmol/L (136-145) 03/16/22 K 4.0 mmol/L (3.5-5.1) 03/16/22 Cl 107 mmol/L (98-107) 03/16/22 CO2 28 mmol/L (21-32) 03/16/22 BUN 18 mg/dl (6-23) 03/16/22 Creat 1.12 mg/dl (0.6-1.4) 03/16/22 Glucose Level 134 mg/dl (70-99(Fasting)) H 03/16/22 PT 10.9 Seconds (9.0-12.0) 03/16/22 PTT 25.2 Seconds (21.0-31.0) 03/16/22 INR 1.0 (0.9-1.1) 03/16/22 HA1c 6.1 % (4.5-5.6) H 03/16/22 Urine Color Yellow 03/16/22 Urine Appearance Turbid (Clear) A 03/16/22 Urine pH 5.0 (4.5-7.5) 03/16/22 Urine Specific [place] 1.029 (1.000-1.030) 03/16/22 Urine Protein Negative (Negative) 03/16/22 Urine Glucose (UA) Negative (Negative) 03/16/22 Urine Ketones Trace (Negative) H 03/16/22 Urine Blood Negative (Negative) 03/16/22 Urine Nitrite Negative (Negative) 03/16/22 Urine Bilirubin Negative (Negative) 03/16/22 Urine Urobilinogen Negative (Negative) 03/16/22 Urine Leukocyte Esterase Negative (Negative) 03/16/22 Urine WBC (Auto) 1-5 /hpf (0-5) 03/16/22 Urine RBC (Auto) 0-4 /hpf (0-4) 03/16/22 Urine Hyaline Casts (Auto) 1-5 /lpf (0-5) 03/16/22 Urine Epithelial Cells (Auto) 5-10 /lpf (0-5) H 03/16/22 Urine Bacteria (Auto) Negative (Negative) 03/16/22 Blood Type A Positive 03/16/22 Antibody Screen NEGATIVE 03/16/22 Testing Electrocardiogram Date: 03/16/22 Findings: + NSR @ (61) Chest X-Ray Date: 03/16/22 FINDINGS: Lung volumes are normal. Lungs are clear. There is no pneumothorax or pleural effusion. Cardiac size is normal. Mediastinal contours are normal. There is no evidence for pulmonary edema. IMPRESSION: No acute cardiopulmonary findings. COVID-19 Risk Screen Screening Information COVID-19 Screen Date: 03/16/22 Exposure 21 Days Family/Household +COVID Last 21 Days: No Exposure 10 Days Any COVID Exposure Last 10 Days: No Symptoms Last 10 Days Experienced COVID Sx Last 10 Days: No + COVID 0-90 Days COVID + in Last 0-90 Days: No
[~2022-04-03 07:39] MED LIST changes: -ACET-1257 PO; +ACETAMINOPHEN 500 MG TAB PO SCH; -AMLO-114 PO; -ASPI-461 PO; -ATEN-175 PO; -CEFAZOLIN 2000 MG/60 ML D5W IV SCH; +CeleBREX 200 MG CAP PO SCH; -DVN/160 PO; -FAMO20TA11 PO; -GABA-113 PO; +GABAPENTIN 300 MG CAP PO SCH; -GLC/500 PO; -IBUP-1050 PO; -LACTATED RINGER'S 1000ML 1,000 ML IV SCH; -LPT10 PO; +LR 15ML/HR IV SCH; +ceFAZolin 2000MG 2,000 MG/15 ML SYR IV SCH
[2022-04-03] MEDS ORDERED: PHENYLEPHRINE 100MCG/ML 5ML SYR IV PRN (08:01)
[2022-04-03] MEDS ORDERED: fentaNYL citrate 100 MCG/2 ML VIAL IV PRN (08:01)
[2022-04-03] MEDS ORDERED: HYDROmorphone INJ 1 MG/ML SYRINGE IV PRN ×2 (08:01→13:52)
[2022-04-03] MEDS ORDERED: ePHEDrine sulfate 50 MG/ML AMP IV PRN (08:01)
[2022-04-03] MEDS ORDERED: LABETALOL HCL IV 5 MG/ML 20ML IV PRN (08:01)
[2022-04-03] MEDS ORDERED: ONDANSETRON INJ 2 MG/ML 2 ML VIAL IV PRN ×2 (08:01→13:52)
[2022-04-03] MEDS ORDERED: MEPERIDINE HCL 25 MG/ML CARP/VIAL IV PRN (08:01)
[2022-04-03] MEDS ORDERED: ATROPINE SULFATE 0.1 MG/ML 10ML SYR IV PRN (08:01)
[2022-04-03] MEDS ORDERED: PROPOFOL IV EMULSION 10 MG/ML 20 ML VIAL IV ONE (08:04)
[2022-04-03] MEDS ORDERED: MIDAZOLAM HCL 1 MG/ML 2ML VIAL ONE (08:04)
[2022-04-03] MEDS ORDERED: NEOSTIGMINE METHYLSULFATE 1 MG/ML 10ML VIAL ONE (08:04)
[2022-04-03] MEDS ORDERED: DEXAMETHASONE SOD INJ 4 MG/ML VIAL ONE (08:04)
[2022-04-03] MEDS ORDERED: ONDANSETRON INJ 2 MG/ML 2 ML VIAL ONE (08:04)
[2022-04-03] MEDS ORDERED: fentaNYL citrate 100 MCG/2 ML VIAL ONE (08:04)
[2022-04-03] MEDS ORDERED: GLYCOPYRROLATE 0.2 MG/ML VIAL ONE (08:04)
[2022-04-03] MEDS: ACETAMINOPHEN 500 MG TAB PO SCH ×2 (08:26→15:21)
--- NOTE | 2022-04-03 09:47 | History & Physical Bridge Note ---
Date of Service April 03, 2022 History & Physical Bridge Note I have examined the patient, reviewed the History & Physical and in the interval since the performance of the History & Physical I have noted the following changes of clinical significance: no changes noted
--- NOTE | 2022-04-03 09:48 | History & Physical Report ---
Date of Service April 03, 2022 Assessment & Plan (1) Lumbar stenosis with neurogenic claudication: Plan: L2-L3 decompression and fusion, possible hardware removal at L3-L5 History of Present Illness Chief Complaint: Back and bilateral leg pain Primary Care Provider: Nima Stafford MD This is a 71-year-old male known to me the presents with current persistent back and bilateral leg pain after failing since course of nonoperative care is here for surgical invention. Allergies Allergy/AdvReac Type Severity Reaction Status Date / Time No Known Allergies Allergy Verified 04/03/22 08:11 Home Medications Medication Instructions Recorded Confirmed Type amlodipine 10 mg tablet 10 mg PO QAM 04/11/18 04/03/22 History aspirin 81 mg tablet,delayed 81 mg PO QPM 04/11/18 04/03/22 History release atenolol 100 mg tablet 100 mg PO QAM 04/11/18 04/03/22 History atorvastatin 10 mg tablet 10 mg PO PM 04/11/18 04/03/22 History metformin 500 mg tablet 1,000 mg PO PM 04/11/18 04/03/22 History losartan 100 mg tablet 100 mg PO QAM 04/21/18 04/03/22 History tamsulosin 0.4 mg capsule (Flomax) 0.4 mg PO BID 04/21/18 04/03/22 History acetaminophen 500 mg tablet 500 mg PO Q6H PRN Pain 01/18/19 04/03/22 History famotidine 20 mg tablet 20 mg PO QAM 03/06/22 04/03/22 History finasteride 5 mg tablet 5 mg PO QAM 03/06/22 04/03/22 History omeprazole 20 mg capsule,delayed 20 mg PO QAM 03/06/22 04/03/22 History release tadalafil 5 mg tablet 5 mg PO QPM 03/06/22 04/03/22 History Past Med/Surg History Medical History BPH (benign prostatic hyperplasia) Chronic anemia Chronic back pain + R>LLE "burning" s/p SI joint fusion 04/2018 Diabetes mellitus, type 2 NIDDM GERD (gastroesophageal reflux disease) controlled Hyperlipidemia Hypertension Kidney stones no surgery Surgical History Fusion of spine multiple (lumbar) H/O arthroscopy of left knee History of back surgery Bilateral SI joint fusions (Dr Souza @ [facility]) S/P Left SI joint fusion /10/07: Grade 1 view, MAC#3, ETT 8.0 at [facility]. R 01/30/19: Grade 1 view, MAC 3, ETT 8. Hx of colonoscopy Family History Other No family history of adverse response to anesthesia Social History Smoking Status: Never smoker Second Hand Exposure: No; Do You Dip or Chew Tobacco: No; Tobacco Cessation Education Requested by Patient: No Hx Alcohol Use: No Hx Substance Use: No Preferred Language: [place] Communication Ability: Effective Facility Designer Required: No Beliefs That Will Affect Care: None Current Living Situation: Spouse Other Information That Helps Us Care for You: No Feels Safe at Home: Yes Safety Concerns: Feels Safe At This Time Assistive Devices: Glasses Physical Exam Physical Exam: Patient is alert and oriented Heart regular rhythm Lungs clear Results & Data Results & Data ([facility]) Vital Signs (Past 12 Hours) Vital Signs Temp Pulse Resp BP Pulse Ox O2 Del Method 04/03/22 08:12 36.8 C 71 18 159/96 H 98 Room Air
[2022-04-03] MEDS ORDERED: ceFAZolin 330 MG/ML 1 GM VIAL ONE (09:59)
[2022-04-03] MEDS ORDERED: BUPIVACAINE/EPINEPHRINE 0.25% 1:200,000 30 ML VIAL ONE (09:59)
[2022-04-03] MEDS ORDERED: HYDROmorphone INJ 2 MG/ML SYR/VIAL ONE ×2 (10:22→13:15)
[2022-04-03] MEDS ORDERED: FLOSEAL HEMOSTATIC MATRIX 10ML TOP ONE (11:05)
--- NOTE | 2022-04-03 12:04 | Operative Report ---
Post Operative Report Pre & Post Diagnosis Operation Date: 04/03/22 09:15 Pre-Op Diagnosis: Spinal Stenosis, Lumbar Region with Neurogenic Claudication Post-Op Diagnosis: Spinal Stenosis, Lumbar Region with Neurogenic Claudication I identified the patient and participated in the time-out.: Yes Procedure Operation Date: 04/03/22 09:15 Actual Procedures #1 lumbar decompression bilateral medial facetectomies and foraminotomies L1-L2 L2-L3. #2 posterior spinal fusion L2-L3. #3 placement posterior instrumentation L2-L3 with pedicle screws and connectors. #4 interbody fusion L2-L3. #5 placement of Spira 9 x 26 mm at L2-L3. #6 placement locally harvested morselized autograft and posterior gutters. #7 placement of I factor model V toss interbody space and posterior gutters. Surgeon Maxwell Souza, DO Rheumatology Nurse Chon Lang Estimated Blood Loss 100 Findings Consistent with Post-Op Diagnosis Specimens None Indications This is a 71-year-old male known to me the presents above-mentioned diagnosis after failing since course of nonoperative care is here for surgical invention. Description of Procedure Patient is met with identified informed consent obtained. Patient was then taken to the operative suite underwent a patient placed in a prone position the [place] table top Sanchez frame. All bony prominences well-padded eyes inspected to ensure no external pressure placed upon the. This point the lumbar spine was prepped and draped in a sterile fashion. Sharp dissection with assistance of Bovie cautery performed down to and exposing the lamina transverse processes of L2 and instrumentation at L3-L4 bilaterally. From caudal cephalad fashion complete laminectomy of L 2 partial laminectomy of L1 was performed including bilateral medial facetectomies and foraminotomies addressing severe spinal stenosis. Pedicle screws then placed in L2 bilaterally and a connector was attached between L3 and L4 directly to the pato. By way of a transforaminal approach on the left pleat discectomy L2-L3 was performed endplates curetted to subcortical bleeding bone and 9 x 26 mm spiral cage with I factor tapped in position. The proper size rods were then placed locked into position bilaterally. The transverse processes of L2 and L3 burred to subcortically bone. I factor bone with V toss and locally harvested morselized autograft was placed in the posterior gutters. 15 round JUAN ANTONIO inserted. Incision was then closed with 1 Vicryl to fascia 2-0 Vicryl subcutaneously and 4 Monocryl for final skin closure. Steri-Strips dressings placed. Patient waken taken to PACU stable condition. Please note spinal cord monitoring utilized at the procedure no changes noted. Lastly Chon Lang was present out the entire surgery and while the patient positioning complex portion of the surgery and final skin closure. I attest to the content of the Intraoperative Record and any orders documented therein. Any exceptions are noted below.
--- NOTE | 2022-04-03 13:00 | Fluoroscopy Report ---
FL lumbar spine 2-3V CLINICAL HISTORY: L2-L3 DECOMPRESSION AND FUSION TECHNIQUE: 2 views were obtained with the C-arm in the OR with the above procedure. Total fluoroscopy time was 18.9 seconds. Radiation dose was 2 mGy. Comparison: Comparison is made to lumbar spine radiographs 06/15/2016 FINDINGS/IMPRESSION: Intraoperative images were obtained of L2-L3 decompression and fusion Please correlate with intraoperative fluoroscopy and operative report. ACT 112: Negative or not required by law. Electronically signed by: Davion Lion M.D. 04/03/2022 12:59 PM
--- NOTE | 2022-04-03 13:19 | Anesthesiology Progress Note ---
Date of Service April 03, 2022 Anesthesia Post Procedure Vital Signs Vital Signs: Temp Pulse Pulse Resp BP Pulse Ox O2 Del Method 04/03/22 13:05 36.0 C L 73 19 110/67 94 Nasal Cannula 04/03/22 12:55 70 12 106/66 99 Nasal Cannula 04/03/22 12:45 77 17 126/73 99 Oxymask 04/03/22 12:35 79 15 126/77 98 Oxymask 04/03/22 12:26 36.3 C L 81 13 144/86 H 99 Oxymask 04/03/22 08:12 36.8 C 71 18 159/96 H 98 Room Air O2 Flow Rate 04/03/22 13:05 2 04/03/22 12:55 2 04/03/22 12:45 3 04/03/22 12:35 3 04/03/22 12:26 3 04/03/22 08:12 Pain Intensity Back: Pain Intensity: 2 Transfer of Care Handoff Completed per policy Notes Mental Status: alert / awake / arousable Patient Amnestic to Procedure: Yes Nausea / Vomiting: adequately controlled Pain: adequately controlled Airway Patency, RR, SpO2: stable & adequate BP & HR: stable & adequate Hydration State: stable & adequate Anesthetic Complications: no major complications apparent and Pt Satisfied with anesthetic care
[2022-04-03] MEDS ORDERED: ACETAMINOPHEN 500 MG TAB PO PRN (13:52)
[2022-04-03] MEDS ORDERED: DO NOT ADMINISTER FLU VACCINE PRN (13:52)
[2022-04-03] MEDS ORDERED: METOCLOPRAMIDE HCL INJ 5 MG/ML 2 ML VIAL IV PRN (13:52)
[2022-04-03] MEDS ORDERED: MAGNESIUM HYDROXIDE SUSP 30 ML UDC PO PRN (13:52)
[2022-04-03] MEDS ORDERED: hydrOXYzine HCl 25 MG TAB PO PRN (13:52)
[2022-04-03] MEDS ORDERED: LORazepam 2 MG/1 ML VIAL IV PRN (13:52)
[2022-04-03] MEDS ORDERED: FAMOTIDINE 20 MG TAB PO PRN (13:52)
[2022-04-03] MEDS ORDERED: PHARMACY GLYCEMIC MGMT CONSULT PRN (13:52)
[2022-04-03] MEDS ORDERED: PROMETHAZINE HCL 12.5 MG in SODIUM CHLORIDE 0.9% 50 ML IV PRN (13:52)
[2022-04-03] MEDS ORDERED: bisacodyL 10 MG SUPP PR PRN (13:52)
[2022-04-03] MEDS ORDERED: DO NOT ADMINISTER PNEUMOCOCCAL VACCINE PRN (13:52)
[2022-04-03] MEDS ORDERED: LORazepam 0.5 MG TAB PO PRN (13:52)
[2022-04-03] MEDS ORDERED: HYDROmorphone INJ 0.5 MG/0.5 ML SYR IV PRN (13:52)
[2022-04-03] MEDS ORDERED: SOD PHOSPHATE/SOD BIPHOSPHATE ENEMA 132 ML BTL PR PRN (13:52)
[2022-04-03] MEDS ORDERED: diphenhydrAMINE Capsule 25 MG CAP PO PRN (13:52)
[2022-04-03] MEDS ORDERED: NALOXONE HCL 0.4 MG/1 ML VIAL/CARP IV PRN (13:52)
[2022-04-03] MEDS ORDERED: ALUMINUM/MAGNESIUM SUSP 30 ML UDC PO PRN (13:52)
[2022-04-03] MEDS ORDERED: ONDANSETRON 4 MG OD TAB PO PRN (13:52)
[2022-04-03] MEDS ORDERED: traMADol HCL 50 MG TABLET PO PRN (13:52)
[2022-04-03] MEDS ORDERED: ACETAMINOPHEN 1,000 MG/100 ML VIAL IV PRN (13:52)
[2022-04-03] MEDS ORDERED: NovoLIN-N (NPH) PER UNIT CHARGE SQ ONE (14:30)
[2022-04-03] MEDS: LACTATED RINGER'S 1,000 ML IV SCH ×2 (14:33→19:50)
--- NOTE | 2022-04-03 14:36 | Pharmacy Report ---
Pharmacy Glycemic Short Note 2 - Date of Service April 03, 2022 - Glycemic Short BSG Results (Last 24 hours): 04/03/22 04/03/22 08:13 12:36 POC Glucose 127 H 148 H OUTPATIENT ANTIDIABETIC REGIMEN: * metformin * A1c - 6.1% ASSESSMENT: * Patient s/p spinal surgery, POD 0 - pharmacy consulted for glycemic management. Dexamethasone given intraoperatively therefore anticipate steroid induced hyperglycemia. Post op BSG 148 mg/dL * Plan to give NPH 10 units x 1 now to help cover steroid effects and will start novolog stress 2/3 * Will order NPH ongoing tomorrow AM to be given with daily dexamethasone PLAN FOR INPATIENT GLYCEMIC CONTROL: * Hold outpatient oral diabetes medications * Basal insulin * NPH 10 units x 1 now * Bolus insulin * NovoLog per scale ACHS or Q6hrs while NPO * Goal Range: Low 110 mg/dL - High 140 mg/dL * Correction Factor: 25 mg/dL/unit * Nutritional / Prandial insulin per carb ratio of 1 unit per 8 grams CHO consumed
--- NOTE | 2022-04-03 15:01 | Consultation ---
Date of Consultation April 03, 2022 Assessment & Plan (1) Lumbar stenosis with neurogenic claudication: (2) Hypertension: (3) Hyperlipidemia: (4) BPH (benign prostatic hyperplasia): Plan Lumbar Stenosis with neurogenic claudication S/P L2-3 Lumbar decompression and fusion by Dr. Souza, POD #0 EBL 100ml tolerated procedure well pain/wound management per ortho activity and therapy as prescribed by ortho monitor hgb, pre op 11.1 HTN monitor BP on amlodipine, atenolol, losartan will hold losartan and amlodipine for now - re evaluate bp in morning to resume bp 101/66 T2DM a1c well controlled 6.1 on metformin glycemic pharmacist is following, he did receive intraop decadron and is scheduled for 3 doses post op expect hyperglycemia monitor for hypoglycemia given pt is insulin naive HLD continue statin BPH continue flomax, finasteride Dispo: per primary DVT ppx: SCDs PCP: Tutu Gay Pt was seen and examined in collaboration with Dr. Abdalla, please see addendum Thank you for this consultation. We will follow the patient with you during their hospital stay. You can reach a member of the [facility] Hospitalist Team 12/10 via hospitalist role on tiger text. A total of 45 minutes were spent with greater than 50% of that time face to face with the patient, personally reviewing all current laboratories, imaging studies, past medication reconciliation, outpatient chart review, and discussion with specialists to collaborate care for the patient with attending. Please see attending documentation for corrections and/or additions. Supervising Physician Co-Signing Physician Notes Attending addendum: The patient was seen and examined in medical floor He is status post L2-L3 lumbar decompression and fusion Complains to have back pain as before does not have any associated neuropathic pain Denies any other symptoms On examination Lying in bed with minimal distress due to back pain Hemodynamically stable with blood pressure at 112/70 Chest-clear to auscultate bilateral Heart-S1, S2 regular Abdomen-benign Extremities-negative for any edema His preadmission labs and imaging studies reviewed Status post lumbar decompression and fusion as above Medically stable with history of diabetes, hypertension and hyperlipidemia Agree with assessment and plan as outlined above by Bev Abdalla History of Present Illness Requesting Physician: Dr. Souza Reason for Consultation: Post op medical management Attending Physician: Maxwell Souza, DO History of Present Illness This is a 71-year-old male who has significant past medical history of T2DM, HTN, HLD, BPH, renal angiomyolipoma who presents for elective lumbar procedure by Dr. Souza. He tolerated the procedure well. He is complaining of low back discomfort, 4 out of 5. He denies any radicular symptoms. He did not have any radicular symptoms or lower extremity weakness prior to procedure. He denies any fever, chills, sweats, lightheadedness, dizziness, chest pain, shortness breath, cough, nausea, vomiting, abdominal pain. He does have frequent nocturia but otherwise denies any other urinary symptoms. His bowels move regularly. He does follow with urology regarding nocturia and BPH. He does have a past medical history of T2DM. Well-controlled on 1000 g of metformin. His last A1c was 6.1. He also has hx of HTN controlled on atenolol, losartan and amlodipine. Allergies Allergy/AdvReac Type Severity Reaction Status Date / Time No Known Allergies Allergy Verified 04/03/22 08:11 Home Medications Medication Instructions Recorded Confirmed Type amlodipine 10 mg tablet 10 mg PO QAM 04/11/18 04/03/22 History aspirin 81 mg tablet,delayed 81 mg PO QPM 04/11/18 04/03/22 History release atenolol 100 mg tablet 100 mg PO QAM 04/11/18 04/03/22 History atorvastatin 10 mg tablet 10 mg PO PM 04/11/18 04/03/22 History metformin 500 mg tablet 1,000 mg PO PM 04/11/18 04/03/22 History losartan 100 mg tablet 100 mg PO QAM 04/21/18 04/03/22 History tamsulosin 0.4 mg capsule (Flomax) 0.4 mg PO BID 04/21/18 04/03/22 History acetaminophen 500 mg tablet 500 mg PO Q6H PRN Pain 01/18/19 04/03/22 History famotidine 20 mg tablet 20 mg PO QAM 03/06/22 04/03/22 History finasteride 5 mg tablet 5 mg PO QAM 03/06/22 04/03/22 History omeprazole 20 mg capsule,delayed 20 mg PO QAM 03/06/22 04/03/22 History release tadalafil 5 mg tablet 5 mg PO QPM 03/06/22 04/03/22 History Patient History Medical History (Updated 04/03/22 @ 15:17 by Bev Womack PA-C) BPH (benign prostatic hyperplasia) Chronic anemia Chronic back pain + R>LLE "burning" s/p SI joint fusion 04/2018 Diabetes mellitus, type 2 NIDDM GERD (gastroesophageal reflux disease) controlled Hyperlipidemia Hypertension Kidney stones no surgery Surgical History Fusion of spine multiple (lumbar) H/O arthroscopy of left knee History of back surgery Bilateral SI joint fusions (Dr Souza @ [facility]) S/P Left SI joint fusion 05/18/18: Grade 1 view, MAC#3, ETT 8.0 at [facility]. R 01/30/19: Grade 1 view, MAC 3, ETT 8. Hx of cataract extraction Hx of colonoscopy Family History Other No family history of adverse response to anesthesia Social History Smoking Status: Never smoker Second Hand Exposure: No; Do You Dip or Chew Tobacco: No; Tobacco Cessation Education Requested by Patient: No Hx Alcohol Use: No Hx Substance Use: No Preferred Language: Kazakh Communication Ability: Effective Core Loader Required: No Beliefs That Will Affect Care: None Current Living Situation: Spouse Other Information That Helps Us Care for You: No Feels Safe at Home: Yes Safety Concerns: Feels Safe At This Time Assistive Devices: Walker Review of Systems Review of Systems: All systems reviewed & are unremarkable except as noted in HPI & below Physical Exam Physical Exam: Constitutional: WD/WN, M, vitals as above, NAD, sitting up in bed, pleasant, conversing easily Head: Normocephalic, Atraumatic Eyes: PERRL, conjunctivae normal, anicteric sclerae ENMT: external ear and nose normal, oropharynx normal Neck: trachea midline, no thyromegaly normal visual inspection Respiratory: normal respiratory effort, lungs clear to auscultation, no wheeze, rales, rhonchi. Normal insp/exp effort, no accessory muscle use Cardiovascular: RRR, no murmur, no edema Vessels: no JVD or carotid bruit Chest: normal inspection of chest Abdomen: normal bowel sounds, soft, nontender, no hepatosplenomegaly Musculoskeletal: no cyanosis or clubbing, extremities motor strength 5/5 , lumbar dressing CDI, JUAN ANTONIO drain currently empty Skin: no rashes, warm and dry normal turgor Neurologic: PERRL, EOMI, accommodation nl, no face palsy, no dysarthria CN's II-XI intact bilaterally and moves all extremities Psychiatric: A+Ox3, euthymic affect Lymphatic: no cervical or axillary lymphadenopathy : deferred Results & Data ([facility]) Vital Signs (Past 12 Hours) Vital Signs Temp Pulse Pulse Resp BP Pulse Ox O2 Del Method 04/03/22 14:16 70 18 101/66 98 Nasal Cannula 04/03/22 13:50 36.8 C 72 18 115/78 97 Nasal Cannula 04/03/22 13:05 36.0 C L 73 19 110/67 94 Nasal Cannula 04/03/22 12:55 70 12 106/66 99 Nasal Cannula 04/03/22 12:45 77 17 126/73 99 Oxymask 04/03/22 12:35 79 15 126/77 98 Oxymask 04/03/22 12:26 36.3 C L 81 13 144/86 H 99 Oxymask 04/03/22 08:12 36.8 C 71 18 159/96 H 98 Room Air O2 Flow Rate 04/03/22 14:16 2 04/03/22 13:50 2 04/03/22 13:05 2 04/03/22 12:55 2 04/03/22 12:45 3 04/03/22 12:35 3 04/03/22 12:26 3 04/03/22 08:12 Laboratory Results Preop labs 03/16/2022 Hemoglobin 11.1, hematocrit 32.2, WBC 6.43, creatinine 1.12, A1c 6.1 Diagnostic Findings Lumbar Spine X-Ray 04/03/22 00:00 FL lumbar spine 2-3V CLINICAL HISTORY: L2-L3 DECOMPRESSION AND FUSION TECHNIQUE: 2 views were obtained with the C-arm in the OR with the above procedure. Total fluoroscopy time was 18.9 seconds. Radiation dose was 2 mGy. Comparison: Comparison is made to lumbar spine radiographs 06/15/2016 FINDINGS/IMPRESSION: Intraoperative images were obtained of L2-L3 decompression and fusion Please correlate with intraoperative fluoroscopy and operative report. ACT 112: Negative or not required by law. Electronically signed by: Davion Lion M.D. 04/03/2022 12:59 PM Medications Administered Medication List Acetaminophen (Acetaminophen 500 Mg Tab) 1,000 mg PO PREOP BELLA Stop: 04/03/22 18:00 Last Admin: 04/03/22 08:26 Dose: 1,000 mg Documented By: MG Celecoxib (Celebrex 200 Mg Cap) 200 mg PO PREOP BELLA Stop: 04/03/22 18:00 Last Admin: 04/03/22 08:26 Dose: 200 mg Documented By: MG Gabapentin (Gabapentin 300 Mg Cap) 300 mg PO PREOP BELLA Stop: 04/03/22 18:00 Last Admin: 04/03/22 08:26 Dose: 300 mg Documented By: MG Lactated Ringer's (Lr) 1,000 mls @ 15 mls/hr IV .Q24H BELLA Stop: 04/04/22 06:29 Last Infusion: 04/03/22 10:10 Dose: 0 mls/hr Documented By: Admin: 04/03/22 08:26 Dose: 15 mls/hr Documented By: MG Cefazolin Sodium (Ancef 2000mg) 2,000 mg in 15 mls @ 3.75 mls/min IV PREOP BELLA; Protocol Stop: 04/03/22 18:00 Last Admin: 04/03/22 10:10 Dose: 3.75 mls/min Documented By: PUJA Lactated Ringer's (Lr) 1,000 mls @ 100 mls/hr IV .Q10H BELLA Stop: 05/03/22 13:51 Last Admin: 04/03/22 14:33 Dose: 100 mls/hr Documented By: SMM Discontinued Medications Bupivacaine HCl/Epinephrine Bitart (Bupivacaine/Epinephrine 0.25% 1:200,000 30 Ml Vial) Confirm Administered Dose 30 ml .ROUTE .STK-MED ONE Stop: 04/03/22 10:00 Last Admin: 04/03/22 11:04 Dose: 30 ml Documented By: GMB Cefazolin Sodium (Cefazolin 330 Mg/Ml 1 Gm Vial) Confirm Administered Dose 990 mg .ROUTE .STK-MED ONE Stop: 04/03/22 10:00 Last Admin: 04/03/22 11:04 Dose: 990 mg Documented By: SCOOBY Miscellaneous ( Floseal Hemostatic Matrix 10ml) 10 ml TOP ONCE ONE Stop: 04/03/22 11:06 Last Admin: 04/03/22 11:55 Dose: 6 ml Documented By: SCOOBY ECG Rate (beats per minute): 61 Rhythm: normal sinus
[2022-04-03] MEDS: INSULIN ASPART PER UNIT SC SCH ×2 (18:07→20:46)
[2022-04-03] MEDS: oxyCODONE HCL IR 5 MG TAB (IMMEDIATE RELEASE) PO PRN (19:47)
[2022-04-03] MEDS: ceFAZolin 2000MG 2,000 MG/15 ML SYR IV SCH (19:48)
[2022-04-03] MEDS: ATORVASTATIN 10 MG TAB PO SCH (19:52)
[2022-04-03] MEDS: DOCUSATE SODIUM/SENNA 50/8.6MG TAB PO SCH (19:53)
[2022-04-03] MEDS: TAMSULOSIN HCL 0.4 MG CAP PO SCH (19:53)
[2022-04-03] MEDS: ASPIRIN 81 MG ECTAB PO SCH (20:47)
[2022-04-04] MEDS ORDERED: INSULIN ASPART PER UNIT SC SCH
[2022-04-04] MEDS: ceFAZolin 2000MG 2,000 MG/15 ML SYR IV SCH (02:54)
[2022-04-04] MEDS: POLYETHYLENE (MIRALAX) 17 GM PACK PO SCH ×4 (05:06→23:20)
[2022-04-04] MEDS: oxyCODONE HCL IR 5 MG TAB (IMMEDIATE RELEASE) PO PRN ×2 (05:15→13:28)
[2022-04-04 07:27] LABS: Basophils # (auto) 0.02 K/uL (0-0.2); Basophils % (auto) 0.1 %; Hematocrit (blood only) 29.2 % (40.1-51.0); Hemoglobin 10.6 g/dl (14.0-18.0); Immature Granulocytes # (auto) 0.14 K/uL (0.00-0.02); Immature Granulocytes % (auto) 0.8 %; Lymphocytes # (auto) 1.19 K/uL (1.2-3.4); Mean Corpuscular Hemoglobin 30.7 pg (25.0-34.0); Mean Corpuscular Hgb Conc 36.3 g/dL (32.0-36.0); Mean Corpuscular Volume 84.6 fL (80.0-100.0); Mean Platelet Volume 10.5 fL (9.4-12.4); Monocytes # (auto) 0.88 K/uL (0.24-0.82); Monocytes % (auto) 5.2 %; Neutrophils # (auto) 14.73 K/uL (1.4-6.5); Neutrophils % (auto) 86.9 %; Platelet Count 226 K/uL (130-400); RDW Standard Deviation 39.5 fL (36.4-46.3); Red Blood Count 3.45 M/uL (4.63-6.08); White Blood Count 16.96 K/ul (4.8-10.8)
[2022-04-04 07:54] LABS: Calcium 8.6 mg/dl (8.5-10.1); Creatinine Clr Calc Pharmacy 65.5 ml/min; Est GFR (African American) 80.7 ml/min; Est GFR (Non-African American) 69.7 ml/min; Potassium 3.8 mmol/L (3.5-5.1)
[2022-04-04] MEDS: dexAMETHasone 6 MG in SYRINGE 0 ML IV SCH (08:22)
[2022-04-04] MEDS ORDERED: FAMOTIDINE 20 MG TAB PO SCH (09:00)
[2022-04-04] MEDS ORDERED: LOSARTAN POTASSIUM 50 MG TAB PO SCH (09:00)
[2022-04-04] MEDS ORDERED: amLODIPine BESYLATE 5 MG TAB PO SCH (09:00)
[2022-04-04] MEDS: FINASTERIDE 5 MG TAB PO SCH (09:08)
[2022-04-04] MEDS: PANTOprazole 40 MG TAB PO SCH (09:08)
[2022-04-04] MEDS: ATENOLOL 50 MG TABLET PO SCH (09:08)
[2022-04-04] MEDS: TAMSULOSIN HCL 0.4 MG CAP PO SCH ×2 (09:08→19:41)
[2022-04-04] MEDS: NovoLIN-N (NPH) PER UNIT CHARGE SQ SCH (09:10)
[2022-04-04] MEDS: INSULIN ASPART PER UNIT SC SCH ×4 (09:11→21:07)
--- NOTE | 2022-04-04 11:17 | Orthopedic Progress Note ---
Date of Service April 04, 2022 Assessment & Plan (1) Lumbar stenosis with neurogenic claudication: Plan: At this time continue physical therapy monitor his JUAN ANTONIO output possible discharge home tomorrow. Admission and Anticipated Discharge Date Admission Date: April 03, 2022 Subjective Patient's back pain is controlled. Has no leg pain. He has been ambulating. Physical Exam Physical Exam: On exam is in bed. Is comfortable. Is good strength testing. Results & Data ([facility]) Vital Signs (Past 12 Hours) Vital Signs Temp Pulse Resp BP Pulse Ox O2 Del Method 04/04/22 08:10 36.5 C 85 18 129/78 95 Room Air 04/04/22 07:53 36.5 C 85 18 129/78 95 Room Air 04/04/22 02:55 36.5 C 77 18 128/74 95 Room Air 04/03/22 23:53 36.5 C 74 18 120/71 94 Room Air
--- NOTE | 2022-04-04 15:10 | Hospitalist Progress Note ---
Date of Service April 04, 2022 Assessment & Plan (1) Lumbar stenosis with neurogenic claudication: (2) Hypertension: (3) Hyperlipidemia: (4) BPH (benign prostatic hyperplasia): Plan Lumbar Stenosis with neurogenic claudication S/P L2-3 Lumbar decompression and fusion by Dr. Souza, POD #1 EBL 100ml tolerated procedure well Remained stable and has been getting PT and OT evaluation pain/wound management per ortho activity and therapy as prescribed by ortho monitor hgb, pre op 11.1 Hemoglobin remained stable at 10.6 HTN monitor BP on amlodipine, atenolol, losartan will hold losartan and amlodipine for now - re evaluate bp in morning to resume bp 101/66 Blood pressure is controlled T2DM a1c well controlled 6.1 on metformin glycemic pharmacist is following, he did receive intraop decadron and is scheduled for 3 doses post op expect hyperglycemia monitor for hypoglycemia given pt is insulin naive Continue SSI HLD continue statin BPH continue flomax, finasteride Dispo: per primary DVT ppx: SCDs PCP: Tutu Gay Remains medically stable Admission and Anticipated Discharge Date Admission Date: April 03, 2022 Subjective 04/04/2022 The patient was seen and examined in medical floor Is a status post lumbar decompression and fusion Doing much better as of today Minimal pain at the back but no other symptoms Review of Systems Review of Systems: All systems reviewed and are unremarkable except as noted below Physical Exam Physical Exam: Lying in bed comfortably Constitutional: well developed, well nourished and + obese; not ill appearing Eyes: PERRL, conjunctivae normal, anicteric sclerae ENMT: external ear and nose normal, oropharynx normal Neck: trachea midline, no thyromegaly Respiratory: no respiratory distress Auscultation: lungs clear to auscultation bilaterally Cardiovascular: Rate/Rhythm: regular rate and regular rhythm; not tachycardic Heart Sounds: normal S1 and normal S2; no murmur Extremities: no edema Gastrointestinal (Abdomen): Inspection/Auscultation: normal bowel sounds; abdomen not distended Percussion/Palpation: abdomen soft; abdomen nontender Musculoskeletal: No acute arthritis in any joint Neurologic: normal touch/pain/proprioception and moves all extremities; no focal motor deficits Psychiatric: A+Ox3, euthymic affect Lymphatic: no cervical or axillary lymphadenopathy Results & Data Results & Data ([facility]) Vital Signs (Past 12 Hours) Vital Signs Temp Pulse Resp BP Pulse Ox O2 Del Method 04/04/22 13:00 36.3 C L 79 18 113/73 95 Room Air 04/04/22 08:10 36.5 C 85 18 129/78 95 Room Air 04/04/22 07:53 36.5 C 85 18 129/78 95 Room Air Laboratory Results Short CBC 04/04/22 Range/Units 06:26 WBC 16.96 H (4.8-10.8) K/ul Hgb 10.6 L (14.0-18.0) g/dl Hct 29.2 L (40.1-51.0) % Plt Count 226 (130-400) K/uL BMP 04/04/22 06:26 Sodium 137 Potassium 3.8 Chloride 106 Carbon Dioxide 26 BUN 14 Creatinine 1.08 Glucose 158 H Calcium 8.6 Medications Administered Current Inpatient Medications Acetaminophen (Acetaminophen 500 Mg Tab) 1,000 mg PO Q8H PRN PRN Reason: MILD Pain Scale 1,2,3 & Pre PT Stop: 05/03/22 13:51 Al Hydrox/Mg Hydrox/Simethicone (Aluminum/Magnesium Susp 30 Ml Udc) 30 ml PO Q 6H PRN PRN Reason: Dyspepsia Stop: 05/03/22 13:51 Amlodipine Besylate (Amlodipine Besylate 5 Mg Tab) 10 mg PO QAM [facility] Stop: 05/04/22 08:59 Aspirin (Aspirin 81 Mg Ectab) 81 mg PO QPM BELLA Stop: 05/03/22 20:59 Last Admin: 04/03/22 20:47 Dose: 81 mg Atenolol (Atenolol 50 Mg Tablet) 100 mg PO QAM BELLA Stop: 05/04/22 08:59 Last Admin: 04/04/22 09:08 Dose: 100 mg Atorvastatin Calcium (Atorvastatin 10 Mg Tab) 10 mg PO PM BELLA Stop: 05/03/22 20:59 Last Admin: 04/03/22 19:52 Dose: 10 mg Bisacodyl (Bisacodyl 10 Mg Supp) 10 mg [place] DAILY PRN PRN Reason: Constipation Stop: 05/03/22 13:51 Diphenhydramine HCl (Diphenhydramine Capsule 25 Mg Cap) 25 mg PO Q6H PRN PRN Reason: Allergic Rhinitis/Insomnia Stop: 05/03/22 13:51 Famotidine (Famotidine 20 Mg Tab) 20 mg PO Q12H PRN PRN Reason: Dyspepsia Stop: 05/03/22 13:51 Finasteride (Finasteride 5 Mg Tab) 5 mg PO QAM [facility] Stop: 05/04/22 08:59 Last Admin: 04/04/22 09:08 Dose: 5 mg Hydromorphone HCl (Hydromorphone Inj 0.5 Mg/0.5 Ml Syr) 0.5 mg IV Q3H PRN PRN Reason: MODERATE Pain (Scale 4,5,6) & Pre PT Stop: 04/17/22 13:51 Last Admin: 04/04/22 08:22 Dose: 0.5 mg Hydromorphone HCl (Hydromorphone Inj 1 Mg/Ml Syringe) 1 mg IV Q3H PRN PRN Reason: SEVERE Pain (Scale 7,8,9,10) Stop: 04/17/22 13:51 Hydroxyzine HCl (Hydroxyzine Hcl 25 Mg Tab) 25 mg PO Q8H PRN PRN Reason: Anxiety Stop: 05/03/22 13:51 Promethazine HCl 12.5 mg/ (Sodium Chloride) 50.5 mls @ 202 mls/hr IV Q6H PRN PRN Reason: Nausea &/or Vomiting Stop: 05/03/22 13:51 Dexamethasone 6 mg/ Syringe 1.5 mls @ 1 mls/min IV DAILY [facility] Stop: 04/06/22 09:02 Last Admin: 04/04/22 08:22 Dose: 1 mls/min Influenza Virus Vaccine Quadrival (Do Not Administer Flu Vaccine) 1 each N/A PRN PRN PRN Reason: Notification Stop: 05/03/22 13:51 Insulin Aspart (Insulin Aspart Per Unit) 0 units SC ACHS [facility] Stop: 05/03/22 16:29 Last Admin: 04/04/22 13:20 Dose: 12 units Insulin Human NPH (Novolin-N (Nph) Per Unit Charge) 15 units SQ QAM [facility] Stop: 05/04/22 08:59 Last Admin: 04/04/22 09:10 Dose: 15 units Lorazepam (Lorazepam 0.5 Mg Tab) 0.5 mg PO Q8H PRN PRN Reason: Sedation/Anxiety Stop: 05/03/22 13:51 Lorazepam (Lorazepam 2 Mg/1 Ml Vial) 0.5 mg IV Q8H PRN PRN Reason: Sedation/Anxiety Stop: 05/03/22 13:51 Losartan Potassium (Losartan Potassium 50 Mg Tab) 100 mg PO QAM [facility] Stop: 05/04/22 08:59 Magnesium Hydroxide (Magnesium Hydroxide Susp 30 Ml Udc) 30 ml PO Q24H PRN PRN Reason: Constipation Stop: 05/03/22 13:51 Metoclopramide HCl (Metoclopramide Hcl Inj 5 Mg/Ml 2 Ml Vial) 10 mg IV Q6H PRN PRN Reason: Nausea &/or Vomiting Stop: 05/03/22 13:51 Miscellaneous Information (Pharmacy Glycemic Mgmt Consult) 1 each N/A UD PRN PRN Reason: Consult Stop: 05/03/22 13:51 Naloxone HCl (Naloxone Hcl 0.4 Mg/1 Ml Vial/Carp) 0.1 mg IV Q5M PRN PRN Reason: Oversedation/Resp depression Stop: 05/03/22 13:51 Ondansetron HCl (Ondansetron Inj 2 Mg/Ml 2 Ml Vial) 4 mg IV Q6H PRN PRN Reason: Nausea &/or Vomiting Stop: 05/03/22 13:51 Ondansetron HCl (Ondansetron 4 Mg Od Tab) 4 mg PO Q6H PRN PRN Reason: Nausea Stop: 05/03/22 13:51 Oxycodone HCl (Oxycodone Hcl Ir 5 Mg Tab (Immediate Release)) 5 - 10 mg PO Q4H PRN PRN Reason: Pain & Pre PT Stop: 04/17/22 13:51 Last Admin: 04/04/22 13:28 Dose: 10 mg Pantoprazole Sodium (Pantoprazole 40 Mg Tab) 40 mg PO QAM [facility] Stop: 05/04/22 08:59 Last Admin: 04/04/22 09:08 Dose: 40 mg Pneumococcal Polyvalent Vaccine (Do Not Administer Pneumococcal Vaccine) 1 each N/A PRN PRN PRN Reason: Notification Stop: 05/03/22 13:51 Polyethylene Glycol (Polyethylene (Miralax) 17 Gm Pack) 17 gm PO Q6 [facility] Stop: 05/04/22 05:59 Last Admin: 04/04/22 13:28 Dose: 17 gm Senna/Docusate Sodium (Docusate Sodium/Senna 50/8.6mg Tab) 2 tab PO HS BELLA Stop: 05/03/22 20:59 Last Admin: 04/03/22 19:53 Dose: 2 tab Sodium Biphosphate/Sodium Phosphate (Sod Phosphate/Sod Biphosphate Enema 132 Ml Btl) 132 ml [place] ONE PRN PRN Reason: Constipation Stop: 05/03/22 13:51 Tamsulosin HCl (Tamsulosin Hcl 0.4 Mg Cap) 0.4 mg PO BID BELLA Stop: 05/03/22 20:59 Last Admin: 04/04/22 09:08 Dose: 0.4 mg Tramadol HCl (Tramadol Hcl 50 Mg Tablet) 50 - 100 mg PO Q4H PRN PRN Reason: Moderate-Severe pain & Pre PT Stop: 05/03/22 13:51
[2022-04-04] MEDS: DOCUSATE SODIUM/SENNA 50/8.6MG TAB PO SCH (19:41)
[2022-04-04] MEDS: ATORVASTATIN 10 MG TAB PO SCH (19:42)
[2022-04-04] MEDS: ASPIRIN 81 MG ECTAB PO SCH (19:42)
[2022-04-05] MEDS: POLYETHYLENE (MIRALAX) 17 GM PACK PO SCH (05:07)
[2022-04-05 07:19] LABS: Basophils # (auto) 0.02 K/uL (0-0.2); Basophils % (auto) 0.1 %; Eosinophils # (auto) 0.03 K/uL (0-0.50); Eosinophils % (auto) 0.2 %; Immature Granulocytes # (auto) 0.16 K/uL (0.00-0.02); Immature Granulocytes % (auto) 1.1 %; Lymphocytes # (auto) 1.94 K/uL (1.2-3.4); Lymphocytes % (auto) 13.3 %; Mean Corpuscular Hemoglobin 31.4 pg (25.0-34.0); Mean Corpuscular Hgb Conc 35.7 g/dL (32.0-36.0); Mean Corpuscular Volume 88.1 fL (80.0-100.0); Mean Platelet Volume 10.6 fL (9.4-12.4); Monocytes # (auto) 0.99 K/uL (0.24-0.82); Monocytes % (auto) 6.8 %; Neutrophils # (auto) 11.47 K/uL (1.4-6.5); Neutrophils % (auto) 78.5 %; Platelet Count 192 K/uL (130-400); RDW Coefficient of Variation 13.4 % (11.5-14.5); RDW Standard Deviation 43.3 fL (36.4-46.3); Red Blood Count 3.18 M/uL (4.63-6.08); White Blood Count 14.61 K/ul (4.8-10.8)
[2022-04-05 07:38] LABS: BUN Creatinine Ratio 20.2 (10-20); Calcium 8.4 mg/dl (8.5-10.1); Est GFR (African American) 84.5 ml/min; Est GFR (Non-African American) 72.9 ml/min; Potassium 3.9 mmol/L (3.5-5.1)
[2022-04-05] MEDS: FINASTERIDE 5 MG TAB PO SCH (08:02)
[2022-04-05] MEDS: PANTOprazole 40 MG TAB PO SCH (08:02)
[2022-04-05] MEDS: dexAMETHasone 6 MG in SYRINGE 0 ML IV SCH (08:02)
[2022-04-05] MEDS: ATENOLOL 50 MG TABLET PO SCH (08:02)
[2022-04-05] MEDS: TAMSULOSIN HCL 0.4 MG CAP PO SCH ×2 (08:02→19:33)
--- NOTE | 2022-04-05 08:18 | Orthopedic Progress Note ---
Date of Service April 05, 2022 Assessment & Plan (1) Lumbar stenosis with neurogenic claudication: Plan: Patient stable postop day #2. We will continue with physical therapy for ambulation and gait training. We will continue with GI DVT prophylaxis as well as pain control. We will continue to monitor his JUAN ANTONIO drain. If he does well throughout the day today he is likely to be discharged home tomorrow. Admission and Anticipated Discharge Date Admission Date: April 03, 2022 Subjective Patient seen bedside in room 386. He states his pain is improving. Has stiffness in the back itself. He is not complaining of any leg symptoms. He had a restful night. He denies any other numbness, tingling, or paresthesias. Physical Exam Physical Exam: On exam he is alert and oriented. His dressings clean dry and intact. His JUAN ANTONIO drain is placed out 20 cc on the shift and 20 on the previous. His hemoglobin is 10.0 hematocrit is 28.0. His abdomen soft and nontender his calves are supple nontender. His strength and sensation are both intact. Results & Data ([facility]) Vital Signs (Past 12 Hours) Vital Signs Temp Pulse Pulse Resp BP Pulse Ox O2 Del Method 04/05/22 07:59 36.6 C 77 18 151/78 H 95 Room Air 04/04/22 20:55 36.5 C 75 18 125/85 95 Room Air
[2022-04-05] MEDS: INSULIN ASPART PER UNIT SC SCH ×4 (09:10→20:54)
[2022-04-05] MEDS: NovoLIN-N (NPH) PER UNIT CHARGE SQ SCH (09:10)
--- NOTE | 2022-04-05 14:31 | Hospitalist Progress Note ---
Date of Service April 05, 2022 Assessment & Plan (1) Lumbar stenosis with neurogenic claudication: (2) Hypertension: (3) Hyperlipidemia: (4) BPH (benign prostatic hyperplasia): Plan Lumbar Stenosis with neurogenic claudication S/P L2-3 Lumbar decompression and fusion by Dr. Souza, POD #2 EBL 100ml tolerated procedure well Remained stable and has been getting PT and OT evaluation pain/wound management per ortho activity and therapy as prescribed by ortho monitor hgb, pre op 11.1 Hemoglobin remained stable at 10.6 Hemoglobin remained stable at 10.0 and PRP is stable to HTN monitor BP on amlodipine, atenolol, losartan will hold losartan and amlodipine for now - re evaluate bp in morning to resume bp 101/66 Blood is at upper side at 151/78 today T2DM a1c well controlled 6.1 on metformin glycemic pharmacist is following, he did receive intraop decadron and is scheduled for 3 doses post op expect hyperglycemia monitor for hypoglycemia given pt is insulin naive Continue SSI HLD continue statin BPH continue flomax, finasteride Dispo: per primary DVT ppx: SCDs PCP: Tutu Gay Remains medically stable Admission and Anticipated Discharge Date Admission Date: April 03, 2022 Subjective 04/04/2022 The patient was seen and examined in medical floor Is a status post lumbar decompression and fusion Doing much better as of today Minimal pain at the back but no other symptoms 04/05/2022 The patient was seen and examined in medical floor Still complains to have some back pain without radiation Denies any other symptoms Review of Systems Review of Systems: All systems reviewed and are unremarkable except as noted below Physical Exam Physical Exam: Lying in bed comfortably Constitutional: well developed, well nourished and + obese; not ill appearing Eyes: PERRL, conjunctivae normal, anicteric sclerae ENMT: external ear and nose normal, oropharynx normal Neck: trachea midline, no thyromegaly Respiratory: no respiratory distress Auscultation: lungs clear to auscultation bilaterally Cardiovascular: Rate/Rhythm: regular rate and regular rhythm; not tachycardic Heart Sounds: normal S1 and normal S2; no murmur Extremities: no edema Gastrointestinal (Abdomen): Inspection/Auscultation: normal bowel sounds; abdomen not distended Percussion/Palpation: abdomen soft; abdomen nontender Neurologic: normal touch/pain/proprioception and moves all extremities; no focal motor deficits Psychiatric: A+Ox3, euthymic affect Lymphatic: no cervical or axillary lymphadenopathy Results & Data Results & Data ([facility]) Vital Signs (Past 12 Hours) Vital Signs Temp Pulse Resp BP Pulse Ox O2 Del Method 04/05/22 07:59 36.6 C 77 18 151/78 H 95 Room Air Laboratory Results Short CBC 04/05/22 Range/Units 06:46 WBC 14.61 H (4.8-10.8) K/ul Hgb 10.0 L (14.0-18.0) g/dl Hct 28.0 L (40.1-51.0) % Plt Count 192 (130-400) K/uL BMP 04/05/22 06:46 Sodium 139 Potassium 3.9 Chloride 107 Carbon Dioxide 27 BUN 21 Creatinine 1.04 Glucose 116 H Calcium 8.4 L Medications Administered Current Inpatient Medications Acetaminophen (Acetaminophen 500 Mg Tab) 1,000 mg PO Q8H PRN PRN Reason: MILD Pain Scale 1,2,3 & Pre PT Stop: 05/03/22 13:51 Al Hydrox/Mg Hydrox/Simethicone (Aluminum/Magnesium Susp 30 Ml Udc) 30 ml PO Q6H PRN PRN Reason: Dyspepsia Stop: 05/03/22 13:51 Amlodipine Besylate (Amlodipine Besylate 5 Mg Tab) 10 mg PO QAM [facility] Stop: 05/04/22 08:59 Aspirin (Aspirin 81 Mg Ectab) 81 mg PO QPM [facility] Stop: 05/03/22 20:59 Last Admin: 04/04/22 19:42 Dose: 81 mg Atenolol (Atenolol 50 Mg Tablet) 100 mg PO QAM [facility] Stop: 05/04/22 08:59 Last Admin: 04/05/22 08:02 Dose: 100 mg Atorvastatin Calcium (Atorvastatin 10 Mg Tab) 10 mg PO PM [facility] Stop: 05/03/22 20:59 Last Admin: 04/04/22 19:42 Dose: 10 mg Bisacodyl (Bisacodyl 10 Mg Supp) 10 mg NH DAILY PRN PRN Reason: Constipation Stop: 05/03/22 13:51 Diphenhydramine HCl (Diphenhydramine Capsule 25 Mg Cap) 25 mg PO Q6H PRN PRN Reason: Allergic Rhinitis/Insomnia Stop: 05/03/22 13:51 Famotidine (Famotidine 20 Mg Tab) 20 mg PO Q12H PRN PRN Reason: Dyspepsia Stop: 05/03/22 13:51 Finasteride (Finasteride 5 Mg Tab) 5 mg PO QAM [facility] Stop: 05/04/22 08:59 Last Admin: 04/05/22 08:02 Dose: 5 mg Hydromorphone HCl (Hydromorphone Inj 0.5 Mg/0.5 Ml Syr) 0.5 mg IV Q3H PRN PRN Reason: MODERATE Pain (Scale 4,5,6) & Pre PT Stop: 04/17/22 13:51 Last Admin: 04/04/22 08:22 Dose: 0.5 mg Hydromorphone HCl (Hydromorphone Inj 1 Mg/Ml Syringe) 1 mg IV Q3H PRN PRN Reason: SEVERE Pain (Scale 7,8,9,10) Stop: 04/17/22 13:51 Hydroxyzine HCl (Hydroxyzine Hcl 25 Mg Tab) 25 mg PO Q8H PRN PRN Reason: Anxiety Stop: 05/03/22 13:51 Promethazine HCl 12.5 mg/ (Sodium Chloride) 50.5 mls @ 202 mls/hr IV Q6H PRN PRN Reason: Nausea &/or Vomiting Stop: 05/03/22 13:51 Dexamethasone 6 mg/ Syringe 1.5 mls @ 1 mls/min IV DAILY [facility] Stop: 04/06/22 09:02 Last Admin: 04/05/22 08:02 Dose: 1 mls/min Influenza Virus Vaccine Quadrival (Do Not Administer Flu Vaccine) 1 each N/A PRN PRN PRN Reason: Notification Stop: 05/03/22 13:51 Insulin Aspart (Insulin Aspart Per Unit) 0 units SC ACHS [facility] Stop: 05/03/22 16:29 Last Admin: 04/05/22 13:30 Dose: 9 units Insulin Human NPH (Novolin-N (Nph) Per Unit Charge) 15 units SQ QAM [facility] Stop: 05/04/22 08:59 Last Admin: 04/05/22 09:10 Dose: 15 units Lorazepam (Lorazepam 0.5 Mg Tab) 0.5 mg PO Q8H PRN PRN Reason: Sedation/Anxiety Stop: 05/03/22 13:51 Lorazepam (Lorazepam 2 Mg/1 Ml Vial) 0.5 mg IV Q8H PRN PRN Reason: Sedation/Anxiety Stop: 05/03/22 13:51 Losartan Potassium (Losartan Potassium 50 Mg Tab) 100 mg PO QAM [facility] Stop: 05/04/22 08:59 Magnesium Hydroxide (Magnesium Hydroxide Susp 30 Ml Udc) 30 ml PO Q24H PRN PRN Reason: Constipation Stop: 05/03/22 13:51 Metoclopramide HCl (Metoclopramide Hcl Inj 5 Mg/Ml 2 Ml Vial) 10 mg IV Q6H PRN PRN Reason: Nausea &/or Vomiting Stop: 05/03/22 13:51 Miscellaneous Information (Pharmacy Glycemic Mgmt Consult) 1 each N/A UD PRN PRN Reason: Consult Stop: 05/03/22 13:51 Naloxone HCl (Naloxone Hcl 0.4 Mg/1 Ml Vial/Carp) 0.1 mg IV Q5M PRN PRN Reason: Oversedation/Resp depression Stop: 05/03/22 13:51 Ondansetron HCl (Ondansetron Inj 2 Mg/Ml 2 Ml Vial) 4 mg IV Q6H PRN PRN Reason: Nausea &/or Vomiting Stop: 05/03/22 13:51 Ondansetron HCl (Ondansetron 4 Mg Od Tab) 4 mg PO Q6H PRN PRN Reason: Nausea Stop: 05/03/22 13:51 Oxycodone HCl (Oxycodone Hcl Ir 5 Mg Tab (Immediate Release)) 5 - 10 mg PO Q4H PRN PRN Reason: Pain & Pre PT Stop: 04/17/22 13:51 Last Admin: 04/04/22 13:28 Dose: 10 mg Pantoprazole Sodium (Pantoprazole 40 Mg Tab) [facility] Stop: 05/04/22 08:59 Last Admin: 04/05/22 08:02 Dose: 40 mg Pneumococcal Polyvalent Vaccine (Do Not Administer Pneumococcal Vaccine) 1 each N/A PRN PRN PRN Reason: Notification Stop: 05/03/22 13:51 Senna/Docusate Sodium (Docusate Sodium/Senna 50/8.6mg Tab) 2 tab PO [facility] Stop: 05/03/22 20:59 Last Admin: 04/04/22 19:41 Dose: 2 tab Sodium Biphosphate/Sodium Phosphate (Sod Phosphate/Sod Biphosphate Enema 132 Ml Btl) 132 ml [place] ONE PRN PRN Reason: Constipation Stop: 05/03/22 13:51 Tamsulosin HCl (Tamsulosin Hcl 0.4 Mg Cap) 0.4 mg PO BID [facility] Stop: 05/03/22 20:59 Last Admin: 04/05/22 08:02 Dose: 0.4 mg Tramadol HCl (Tramadol Hcl 50 Mg Tablet) 50 - 100 mg PO Q4H PRN PRN Reason: Moderate-Severe pain & Pre PT Stop: 05/03/22 13:51
[2022-04-05] MEDS: ASPIRIN 81 MG ECTAB PO SCH (19:32)
[2022-04-05] MEDS: ATORVASTATIN 10 MG TAB PO SCH (19:33)
[2022-04-05] MEDS: DOCUSATE SODIUM/SENNA 50/8.6MG TAB PO SCH (19:33)
[2022-04-05] MEDS: oxyCODONE HCL IR 5 MG TAB (IMMEDIATE RELEASE) PO PRN (19:34)
[2022-04-06] MEDS: TAMSULOSIN HCL 0.4 MG CAP PO SCH (09:06)
[2022-04-06] MEDS: PANTOprazole 40 MG TAB PO SCH (09:06)
[2022-04-06] MEDS: FINASTERIDE 5 MG TAB PO SCH (09:06)
[2022-04-06] MEDS: ATENOLOL 50 MG TABLET PO SCH (09:06)
[2022-04-06] MEDS: dexAMETHasone 6 MG in SYRINGE 0 ML IV SCH (09:06)
[2022-04-06] MEDS: INSULIN ASPART PER UNIT SC SCH (09:10)
[2022-04-06] MEDS: NovoLIN-N (NPH) PER UNIT CHARGE SQ SCH (09:11)
--- NOTE | 2022-04-06 10:31 | Discharge Summary ---
Date of Service April 06, 2022 Admission HPI Per Admitting Provider This is a 71-year-old male known to me the presents with current persistent back and bilateral leg pain after failing since course of nonoperative care is here for surgical invention. Principal Diagnosis Lumbar spinal stenosis with neurogenic claudication Discharge Data Allergies Allergy/AdvReac Type Severity Reaction Status Date / Time No Known Allergies Allergy Verified 04/03/22 08:11 Consultations 04/03/22 13:52 Consult Hospitalist Routine Procedures Performed Operation Date: 04/03/22 09:15 Actual Procedures p L2-L3 Decompression and Fusion, Possible Hardware Removal at L3-L5, Spinal Cord Monitoring(Not Applicable) - Maxwell Souza DO Ordered Studies 04/03/22 [place] lumbar spine 2-3V Routine Hospital Course (1) Lumbar stenosis with neurogenic claudication: Patient with lumbar decompression fusion tolerated this well second orthopedic for postoperative. Postop day 1 is up and ambulating progress postop day #2 on postop day #3 pain was well controlled JUAN ANTONIO drain decreased appropriately. E xcellent strength testing. Subsequent discharge home. Discharge orders instructions from the chart for further review. Total Time Total Time Spent Total Time Spent (In Minutes): 20 minutes Discharge Plan Discharge Items Patient Disposition: Home - Self-Care Reason For Visit: POSTOP Discharge Diagnosis: stenosis Activity: As commented below Non-emergency contact: Primary Care Provider Call non-emergency contact if: you have any medication questions Follow-up/Referrals: Nima Stafford MD [Primary Care Provider] - Diet: Regular Addtl Attending Provider Instructions: ACTIVITY RECOMMENDATIONS: SELF CARE INSTRUCTIONS AFTER THORACIC/LUMBAR FUSIONS 1. You may walk to your tolerance. It is good exercise for your legs and back. Expect some back and intermittent leg aches and pains. 2. You may perform "counter-top" level activities (make a sandwich, prosper with a project, etc.). 3. No bending or lifting of more than 10 pounds or back twisting of any nature (roll like a log when turning in bed). 4. You may ride in a car for 20-30 minutes at a time. No driving until after your first visit with your doctor. 5. Frequent changes of position and restricting sitting to 30 minutes at a time will help limit the amount of back spasms and stiffness you may experience. 6. You may discontinue the use of ambulatory aids (cane, crutches, etc.) once your strength and confidence allow. 7. You may head start coordinator the shower and let water strike your incision when you arrive home at least once daily. Do not take a tub bath, sit in a hot tub or go into a swimming pool until after your first recheck in the office. SPECIAL CARE INSTRUCTIONS: VERY IMPORTANT TO READ AND REVIEW A. Your surgical incision has been closed with a cosmetic suture under the skin that will dissolve in about 6 weeks. In 14 days, you can use a pair of clean scissors and cut the suture that is left outside of the skin at the ends of your incision. 1. The small skin tapes can be removed 7 days after surgery if they have not fallen off by that point. 2. You may keep the wound open to air as much as possible to promote healing after post-op day number 5 unless told otherwise by your doctor. 3. If you think the wound looks like it is becoming infected (redness or worsening drainage) and/or you are experiencing fever, chill or worsening back pain and muscle spasms, contact the office so that we may evaluate you as soon as possible. B. Complications are uncommon, but please contact us if you have any signs or symptoms of: 1. wound infection (fever higher than 102.5 degrees F, redness, separation of wound, drainage, or increasing pain from the incision) 2. blood clots in legs (pain, swelling, redness and warmth in legs) 3. urinary tract infection (fever higher than 102.5 degrees F, burning upon urination or increased frequency of urination) 4. nerve problems (inability to walk on your toes or heels, numbness, loss of bowel or bladder control) 5. any other symptoms that concern you C. Please call the office at if you have any concerns or questions about your operation or recovery. D. No smoking! Smoking drastically decreases the chance of a solid fusion. E. Do not take any anti-inflammatory medications (Indocin, Advil, Motrin, Aspirin, Naprosyn, etc.) as these may inhibit the chance of a solid fusion. Tylenol is okay to take for pain. MANAGING PAIN AFTER SPINAL SURGERY 1. Narcotic medication is intended for short-term use and will be provided for surgical pain. Surgical pain usually lasts for a period of 4-6 weeks. Narcotic medication includes Percocet, Vicodin, Darvocet, Tylenol #3 or Lortab. 2. Longer-term pain is more appropriately treated with non-narcotic medication such as Tylenol ES. 3. Muscle spasm is not appropriately treated with narcotics. Muscle relaxers such as Soma, Flexeril or Skelaxin can be used along with Tylenol ES. 4. Remember that we all live with some "aches and pains". This is not unusual or uncommon after an injury or as we get older. a. Back pain is expected and may include muscle spasms for 4 to 6 weeks after surgery. The pain should gradually improve. If the pain worsens for no apparent reason, please contact the office. b. Intermittent leg pain may also be experienced and should not be concerned about unless it worsens for no apparent reason. If so, please contact the office. 5. We will provide appropriate medication within the normal guidelines of their prescribed use. We will also be very cautious and aware of potential abuse and extended duration of patients' medication needs. a. Pain medications are for your comfort and to assist with sleep and rest so that the tissue can heal. They are not provided in order to return to normal activity and should not be used through the day. To do so or worsening pain at night can result from ongoing tissue damage and development of tolerance to the prescribed medicine. 6. Please allow 2-3 days to process refills. Prescriptions will not be mailed but must be picked up at the office. FOLLOW UP VISIT: Keep your scheduled follow-up appointment. Any questions, please call the office at . Pending Studies at Discharge: No Stand-Alone Forms: [facility] [employer], Smoking Cessation Medications and DC Order Prescriptions: New tramadol 50 mg tablet 50 mg PO Q6H PRN (Reason: pain, moderate) Qty: 30 0RF oxycodone 5 mg tablet 5 mg PO Q6H PRN (Reason: pain, severe) Qty: 30 0RF Continued metformin 500 mg Tablet 1,000 mg PO PM atorvastatin 10 mg Tablet 10 mg PO PM atenolol 100 mg Tablet 100 mg PO QAM aspirin 81 mg Tablet,Delayed Release (Dr/Ec) 81 mg PO QPM amlodipine 10 mg Tablet 10 mg PO QAM losartan 100 mg Tablet 100 mg PO QAM tamsulosin [Flomax] 0.4 mg Capsule 0.4 mg PO BID acetaminophen 500 mg Tablet 500 mg PO Q6H PRN (Reason: Pain) omeprazole 20 mg Capsule,Delayed Release(Dr/Ec) 20 mg PO QAM finasteride 5 mg Tablet 5 mg PO QAM tadalafil 5 mg Tablet 5 mg PO QPM famotidine 20 mg Tablet 20 mg PO QAM Discharge Orders: Discharge Order (Routine); Ordered 04/06/22 Ordered By: Maxwell Souza Admission Data Admit Date/Time: 04/03/22 12:07 Attending Provider: Maxwell Souza Admit Provider: Maxwell Souza Primary Care Provider: Nima Stafford Other Providers: Tanesha Duarte ; Claire Abdalla
== END 2022-04-06 11:19 | disposition home or self-care (01) | DRG 455 ==
LOC: ASU 07:39 → 3N 12:07